=== PATIENT | female | born 1965 | race Caucasian/White ===

== ENCOUNTER 2017-08-24 14:16 | Emergency (ER) | payer OTHER ==
[2017-08-24 14:39] VITALS: BMI 29.2
--- NOTE | 2017-08-24 14:40 | PDOC ---
History of Present Illness - General History Source: Patient Exam Limitations: No Limitations <Eusebia Balderrama - Last Filed: 08/24/17 14:55> <Sudha Tinoco - Last Filed: 08/25/17 07:54> <Devan Gill - Last Filed: 08/26/17 05:08> - General Chief Complaint: Syncope/Near Syncope Stated Complaint: SYNCOPE Time Seen by Provider: 08/24/17 14:32 - History of Present Illness Initial Comments: 08/24/17 14:55 The patient is a 52 year old female with a significant PMH of polysubstance abuse who was sent in from [facility] to the emergency department for AMS, constricted pupils and somnulence. [facility] administered Narcan for her symptoms. The patient recently completely detox at [facility]. The patient admits to drinking Vodka after detox but is otherise is not providing history. The patient denies abdominal pain, chest pain, shortness of breath, headache and dizziness. Allergies: NKA Past surgical history: None reported. (Eusebia Balderrama) Past History <Eusebia Balderrama - Last Filed: 08/24/17 14:55> <Sudha Tinoco - Last Filed: 08/25/17 07:54> - Past Medical History Anemia: No Asthma: No Cancer: No Cardiac Disorders: No CVA: No COPD: No Dementia: No Diabetes: No GI Disorders: No Disorders: No HTN: No Hypercholesterolemia: No Kidney Stones: No Liver Disease: No Seizures: No Thyroid Disease: No - Surgical History Abdominal Surgery: No Appendectomy: No Cardiac Surgery: No Cholecystectomy: No Lung Surgery: No Neurologic Surgery: No Orthopedic Surgery: No - Reproductive History PID: No - Suicide/Smoking/Psychosocial Hx Smoking History: Unknown if ever smoked Have you smoked in the past 12 months: No Hx Alcohol Use: Yes Drug/Substance Use Hx: No Substance Use Type: Alcohol Hx Substance Use Treatment: Yes <Devan Gill - Last Filed: 08/26/17 05:08> - Past Medical History Allergies/Adverse Reactions: Allergies Allergy/AdvReac Type Severity Reaction Status Date / Time No Known Allergies Allergy Verified 08/25/17 12:52 Home Medications: Ambulatory Orders Paroxetine HCl [Paxil -] 30 mg PO DAILY 03/30/18 Quetiapine Fumarate [Seroquel -] 200 mg PO HS 08/25/17 Cardiac Specific PMH - Complaint Specific PMHX Pacemaker: No <Devan Gill - Last Filed: 08/26/17 05:08> Review of Systems - Review of Systems Able to Perform ROS?: No (Limited 2/2 to pt condit.) <Eusebia Balderrama - Last Filed: 08/24/17 14:55> <Sudha Tinoco - Last Filed: 08/25/17 07:54> <Devan Gill - Last Filed: 08/26/17 05:08> - Review of Systems Comments:: 08/24/17 14:54 Limited due to patient condition. (Eusebia Balderrama) *Physical Exam <Eusebia Balderrama - Last Filed: 08/24/17 14:55> <Sudha Tinoco - Last Filed: 08/25/17 07:54> <Devan Gill - Last Filed: 08/26/17 05:08> - Vital Signs Last Vital Signs Temp Pulse Resp BP Pulse Ox 98.2 F 80 18 102/74 99 08/25/17 08:34 08/25/17 09:22 08/25/17 09:22 08/25/17 09:22 08/25/17 09:22 - Physical Exam Comments: 08/24/17 14:55 GENERAL: The patient is awake, alert, but slow to respond, Nontoxic - in no acute distress. HEAD: Normocephalic, atraumatic. EYES: extraocular movements intact, sclera anicteric, conjunctiva clear. ENT: Normal voice, Moist mucous membranes. NECK: Normal range of motion, supple LUNGS: Breath sounds equal, clear to auscultation bilaterally. No wheezes, no rhonchi, no rales. HEART: Regular rate and rhythm, ABDOMEN: Soft, nontender, normoactive bowel sounds. No guarding, no rebound. No CVA tenderness BACK: NO focal tenderness in midline in cervical/throacic/lumbar spine EXTREMITIES: Normal range of motion, no edema. No clubbing or cyanosis. No cords, erythema, or tenderness. NEUROLOGICAL: No facial assymetry, Normal speech, PSYCH: Normal mood, normal affect. SKIN: Warm, Dry, normal turgor, (Eusebia Balderrama) ED Treatment Course - LABORATORY CBC & Chemistry Diagram: 08/24/17 16:11 08/24/17 20:10 <Sudha Tinoco - Last Filed: 08/25/17 07:54> - LABORATORY CBC & Chemistry Diagram: 08/24/17 16:11 08/24/17 20:10 <Devan Gill - Last Filed: 08/26/17 05:08> - ADDITIONAL ORDERS Additional order review: 08/24/17 16:11 RBC 4.17 MCV 94.6 MCHC 34.4 RDW 15.6 MPV 8.1 Neutrophils % 49.5 Lymphocytes % 39.7 Monocytes % 8.0 Eosinophils % 1.8 Basophils % 1.0 - Medications Given in the ED: ED Medications Discontinued Medications Generic Name Dose Route Start Last Admin Trade Name Freq PRN Reason Stop Dose Admin Chlordiazepoxide HCl 25 mg 08/25/17 07:03 08/25/17 07:06 Librium - PO 08/25/17 07:04 25 mg ONCE ONE Administration Medical Decision Making <Eusebia Balderrama - Last Filed: 08/24/17 14:55> <Sudha Tinoco - Last Filed: 08/25/17 07:54> <Devan Gill - Last Filed: 08/26/17 05:08> - Medical Decision Making 08/24/17 14:40 52y F hx of polysubstance abuse sent from [facility] for evaluation of AMS - per Dr. Lam, she was noted to haveAMS, possible had constricted pupils and was given narcan 0.4 with improvement. on arrival the pt was awake but slow to respond to questsions, but in no distress otherwise. states she drank 'too much alcohol' but will not elborate. denies opiate use or benzo use. will ck labs to r/o etoh intoxication will ck tox screen supportive care vitals wnl here 08/24/17 18:07 pt more alert states she drank 2pints of vodka prior to going to rehab denies taking any thing else labs hemolized will repeat, but will observe for sobriety will sign out to dr. nagel to fu with results and reassess the pt (Devan Gill) *DC/Admit/Observation/Transfer <Eusebia Balderrama - Last Filed: 08/24/17 14:55> <Sudha Tinoco - Last Filed: 08/25/17 07:54> <Devan Gill - Last Filed: 08/26/17 05:08> Diagnosis at time of Disposition: Alcohol dependence - Discharge Dispostion Disposition: HOME Condition at time of disposition: Stable - Patient Instructions Printed Discharge Instructions: DI for Alcohol Abuse - Attestations Scribe Attestion: 08/24/17 14:55 Documentation prepared by Eusebia Balderrama, acting as medical receptionist for Devan Gill MD. (Eusebia Balderrama)
[2017-08-24 16:19] LABS: EOS % 1.8 % (0-4.5); HEMATOCRIT 39.4 % (32.4-45.2); HEMOGLOBIN 13.6 GM/dL (10.7-15.3); LYMPH % 39.7 % (8-40); MCH 32.5 pg (25.7-33.7); MCHC 34.4 g/dl (32.0-36.0); MEAN CELL VOLUME 94.6 fl (80-96); MEAN PLT VOLUME 8.1 fl (7.5-11.1); NEUT % 49.5 % (42.8-82.8); PLATELET COUNT 260 K/MM3 (134-434); RBC 4.17 M/mm3 (3.60-5.2); RDW 15.6 % (11.6-15.6); WHITE BLOOD COUNT 4.9 K/mm3 (4.0-10.0)
[2017-08-24 21:52] LABS: ALBUMIN 3.5 g/dl (3.4-5.0); ANION GAP 12 (8-16); BLOOD UREA NITROGEN 14 mg/dL (7-18); CALCIUM 8.3 mg/dL (8.5-10.1); CHLORIDE 109 mmol/L (98-107); CO2 26 mmol/L (21-32); CREATININE 0.6 mg/dL (0.55-1.02); GLUCOSE,RANDOM 90 mg/dL (74-106); SGPT/ALT 29 U/L (12-78); SODIUM 147 mmol/L (136-145)
[2017-08-24 21:53] LABS: ALK PHOS 70 U/L (45-117); BILIRUBIN,TOTAL 0.2 mg/dL (0.2-1.0); TOT PROT 6.9 g/dl (6.4-8.2)
[2017-08-24 21:57] LABS: POTASSIUM 4.7 mmol/L (3.5-5.1)
[2017-08-24 21:58] LABS: SGOT/AST 29 U/L (15-37)
[2017-08-25] MEDS ORDERED: chlordiazePOXIDE HCL 25 MG CAPSULE PO ONE (07:03)
--- NOTE | 2017-08-25 07:03 | PDOC ---
*Physical Exam - Vital Signs Last Vital Signs Temp Pulse Resp BP Pulse Ox 98.3 F 96 H 16 113/71 94 L 08/24/17 14:36 08/24/17 20:36 08/24/17 20:36 08/24/17 20:36 08/24/17 20:36 ED Treatment Course - LABORATORY CBC & Chemistry Diagram: 08/24/17 16:11 08/24/17 20:10 - ADDITIONAL ORDERS Additional order review: Laboratory Results 08/24/17 20:10 Sodium 147 H Potassium 4.7 Chloride 109 H Carbon Dioxide 26 Anion Gap 12 BUN 14 Creatinine 0.6 Creat Clearance w eGFR > 60 Random Glucose 90 Calcium 8.3 L Total Bilirubin 0.2 D AST 29 ALT 29 Alkaline Phosphatase 70 Total Protein 6.9 Albumin 3.5 Alcohol, Quantitative 248.03 H* 08/24/17 16:11 RBC 4.17 MCV 94.6 MCHC 34.4 RDW 15.6 MPV 8.1 Neutrophils % 49.5 Lymphocytes % 39.7 Monocytes % 8.0 Eosinophils % 1.8 Basophils % 1.0 Medical Decision Making - Medical Decision Making 08/25/17 07:03 Pt to go to [place] [facility] after 8am. *DC/Admit/Observation/Transfer Diagnosis at time of Disposition: Alcohol dependence - Discharge Dispostion Disposition: HOME Condition at time of disposition: Stable Admit: No - Referrals - Patient Instructions Printed Discharge Instructions: DI for Alcohol Abuse - Post Discharge Activity
[2017-08-25] MEDS ORDERED: chlordiazePOXIDE HCL 25 MG CAPSULE ONE (07:08)
[2017-08-25 08:36] VITALS: TEMP 98.2
[2017-08-25 09:23] VITALS: BP 102/74; PULSE 80
== END 2017-08-25 09:36 | disposition home or self-care (01) ==
LOC: JER 14:16
DX: F10.20 Alcohol dependence, uncomplicated (principal)
CPT/HCPCS: 36415; 80053; 80307; 85025; 99285-25

== ENCOUNTER 2017-08-25 09:55 | Inpatient (IN) | payer OTHER ==
[2017-08-25 10:26] VITALS: BMI 34.3
--- NOTE | 2017-08-25 13:57 | HP ---
Admission [facility] Chief Complaint: REHAB TX FOR ALCOHOL ADDICTION Allergies/Adverse Reactions: Allergies Allergy/AdvReac Type Severity Reaction Status Date / Time No Known Allergies Allergy Verified 08/25/17 12:52 History of Present Illness: 52 Y/O FEMALE WITH A HX OF ALCOHOL DEPENDENCE SEEKING REHAB TX. PT WAS HERE YESTERDAY FOR TREATMENT BUT WAS UNRESPONSIVE TO ADMISSION ASSESSMENT AND WAS TAKEN BY AMBULANCE TO [facility] FOR EVALUATION AND POSSIBLE TREATMENT. PT STATES WAS GIVEN LIBRIUM FOR ANXIETY AND DISCHARGED TODAY FOR AFTERCARE. Exam Limitations: No Limitations - Ebola screening Have you traveled outside of the country in the last 21 days: No Have you had contact with anyone from an Ebola affected area: No Have you been sick,other than usual withdrawal symptoms: No Do you have a fever: No - Review of Systems Constitutional: Chills, Loss of Appetite, Night Sweats, Changes in sleep EENT: reports: Blurred Vision, Tearing, Nose Congestion Respiratory: reports: No Symptoms reported Cardiac: reports: Lightheadedness GI: reports: Diarrhea, Poor Appetite, Indigestion : reports: No Symptoms Reported Musculoskeletal: reports: Joint Pain (LEFT KNEE PAIN), Muscle Pain Integumentary: reports: Bruising (IN THE PAST FROM FALLING WHILE INTOXICATED) Neuro: reports: Headache, Seizure (ALCOHOL RELATED--), Tremors, Unsteady Gait ( ON INTOXICATION), Dizziness Endocrine: reports: No Symptoms Reported Hematology: reports: No Symptoms Reported Psychiatric: reports: Orientated x3, Anxious, Depressed Other Systems: Reviewed and Negative Patient History - Patient Medical History Hx Anemia: No Hx Asthma: No Hx Chronic Obstructive Pulmonary Disease (COPD): No Hx Cancer: No Hx Cardiac Disorders: No Hx Hypertension: No Hx Hypercholesterolemia: No Hx Pacemaker: No HX Cerebrovascular Accident: No Hx Seizures: Yes (alcohol related seizures-last episode was in 2014) Hx Dementia: No Hx Diabetes: No Hx Gastrointestinal Disorders: Yes (acid reflux) Hx Liver Disease: No Hx Genitourinary Disorders: No Hx Sexually Transmitted Disorders: No (DENIES) Hx Renal Disease (ESRD): No Hx Thyroid Disease: Yes (SAYS HYPOTHYROID HX BUT NOT TAKING ANY MED) Hx Human Immunodeficiency Virus (HIV): No (NEGATIVE HX) Hx Hepatitis C: No (NEGATIVE HX) Hx Depression: Yes Hx Suicide Attempt: Yes (choked herself in 03/2016;DENIES S/I TODAY) Hx Bipolar Disorder: No Hx Schizophrenia: No - Patient Surgical History Past Surgical History: Yes Hx Neurologic Surgery: No Hx Cataract Extraction: No Hx Cardiac Surgery: No Hx Lung Surgery: No Hx Breast Surgery: No Hx Breast Biopsy: No Hx Abdominal Surgery: No Hx Appendectomy: No Hx Cholecystectomy: No Hx Genitourinary Surgery: No Hx Section: Yes (x3) Hx Orthopedic Surgery: No Hx Hysterectomy: No Anesthesia Reaction: No - PPD History Previous Implant?: Yes Documented Results: Positive w/proof Implanted On Prior [facility] Admission?: Yes Date: 11/18/15 Results: 10 mm PPD to be Administered?: No - Reproductive History Patient is a Female of Child Bearing Age (11 -55 yrs old): Yes Last Menstrual Period: 08/15/17 Patient : No - Smoking Cessation Smoking history: Never smoked Have you smoked in the past 12 months: No Hx Chewing Tobacco Use: No Initiated information on smoking cessation: No - Substance & Tx. History Hx Alcohol Use: Yes Substance Use Type: Alcohol Hx Substance Use Treatment: Yes (LAST TX AT [facility]) - Substances Abused Alcohol-vodka Route: Oral Frequency: Daily Amount used: 2 pts. Age of first use: 9 Date of Last Use: 08/24/17 Family Disease History - Family Disease History Family Disease History: CA: Grandparent (ETOH DEPENDENT), Other: Grandparent, Father (ETOH DEPENDENT), Mother (ETOH DEPENDENT) Admission Physical Exam [facility] - Vital Signs Vital Signs: Vital Signs - 24 hr 08/25/17 10:22 Temperature 96.6 F L Pulse Rate 75 Respiratory 20 Rate Blood Pressure 141/88 - Physical General Appearance: Yes: No Apparent Distress, Anxious HEENTM: Yes: EOMI, Normocephalic, KETTY, Pharynx Normal, Nasal Congestion, Rhinorrhea Respiratory: Yes: Chest Non-Tender, Lungs Clear, Normal Breath Sounds, No Respiratory Distress Neck: Yes: No masses,lesions,Nodules, Supple, Trachea in good position Breast: Yes: Breast Exam Deferred Cardiology: Yes: Regular Rhythm, Regular Rate, S1, S2 Abdominal: Yes: Normal Bowel Sounds, Non Tender, Flat Genitourinary: Yes: Other (N/C) Musculoskeletal: Yes: full range of Motion, Gait Steady Extremities: Yes: Normal Range of Motion, Non-Tender Neurological: Yes: aws consultant II-XII NML intact, Fully Oriented, Alert, Motor Strength 5/5 Integumentary: Yes: Dry, Warm Lymphatic: Yes: Within Normal Limits - Diagnostic (1) Alcohol dependence with uncomplicated withdrawal Current Visit: Yes Status: Chronic (2) Seizure Current Visit: Yes Status: Suspected (3) History of depression Current Visit: Yes Status: Chronic Cleared for Admission [facility] - Detox or Rehab Claeared for Rehab Admission: Yes [facility] Breath Alcohol Content Breath Alcohol Content: 0 Urine Pregancy Test - Result Urine Test Results: Negative- NO Line Present Urine Drug Screen - Results Drug Screen Negative: No Urine Drug Screen Results: BZO-Benzodiazepines Inpatient Rehab Admission - Initial Determination Are CD services needed?: Yes Free of communicable disease: Yes Not in need of hospitalization: Yes - Rehab Admission Criteria Patient is meeting Inpatient Rehab admission criteria:: Yes
[2017-08-25] MEDS ORDERED: MAGNESIUM HYDROX 2400MG/30ML ORAL SUSPENSION 30 ML CUP PO PRN (14:13)
[2017-08-25] MEDS ORDERED: MENTHOL/PHENOL 1 EACH UD MM PRN (14:13)
[2017-08-25] MEDS ORDERED: IBUPROFEN 400 MG TABLET (FP) PO PRN (14:13)
[2017-08-25] MEDS ORDERED: ACETAMINOPHEN 325 MG TABLET (FP) PO PRN (14:13)
[2017-08-25] MEDS ORDERED: guaiFENesin/D-METHORPHAN HB 10 ML UNIT-DOSE CUPS PO PRN (14:13)
[2017-08-25] MEDS ORDERED: LOPERAMIDE HCL 2 MG CAPSULE PO PRN (14:13)
[2017-08-25] MEDS ORDERED: P-EPHED 60MG/TRIPROLIDI 2.5MG TABLET PO PRN (14:13)
[2017-08-25] MEDS ORDERED: MAG HYDROX/AL HYDROX/SIMETH 30 ML UNIT-DOSE CUP PO PRN (14:13)
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
[2017-08-25] MEDS: PARoxetine HCL 20 MG TABLET (FP) PO SCH (17:59)
[2017-08-25] MEDS: THIAMINE HCL 100 MG TABLET (FP) PO SCH (21:51)
[2017-08-25] MEDS: QUEtiapine FUMARATE 200 MG TABLET PO SCH (21:51)
[2017-08-25] MEDS ORDERED: MELATONIN 5 MG TABLETS PO PRN (22:00)
[2017-08-26 03:39] LABS: URINE APPEARANCE SLCLOUDY; URINE BILIRUBIN NEGATIVE (<2.0 mg/dL); URINE BLOOD NEGATIVE (NEGATIVE); URINE COLOR YELLOW; URINE GLUCOSE (UA) NEGATIVE (NEGATIVE); URINE KETONE NEGATIVE (NEGATIVE); URINE LEUK ESTERASE TRACE (NEGATIVE); URINE NITRITE NEGATIVE (NEGATIVE); URINE PROTEIN NEGATIVE (NEGATIVE); URINE UROBILINOGEN NEGATIVE mg/dL (0.2-1.0)
[2017-08-26 03:46] LABS: EPI CELLS FEW /HPF (FEW); URINE BACTERIA RARE /hpf (NONE SEEN); URINE HYALINE CAST 2 /lpf; URINE MUCUS MANY; YEAST MANY
[2017-08-26] MEDS: PRENATAL VITAMINS W/ FOLIC ACID TABLET (FP) PO SCH (09:47)
[2017-08-26] MEDS: PARoxetine HCL 20 MG TABLET (FP) PO SCH (09:47)
[2017-08-26] MEDS: QUEtiapine FUMARATE 200 MG TABLET PO SCH (21:57)
[2017-08-26] MEDS: THIAMINE HCL 100 MG TABLET (FP) PO SCH (21:57)
[2017-08-27] MEDS: PRENATAL VITAMINS W/ FOLIC ACID TABLET (FP) PO SCH (10:34)
[2017-08-27] MEDS: PARoxetine HCL 20 MG TABLET (FP) PO SCH (10:34)
--- NOTE | 2017-08-27 16:30 | EKG ---
Test Reason : Blood Pressure : / mmHG Vent. Rate : 058 BPM Atrial Rate : 058 BPM P-R Int : 148 ms QRS Dur : 078 ms QT Int : 446 ms P-R-T Axes : 045 011 044 degrees QTc Int : 437 ms SINUS BRADYCARDIA NONSPECIFIC ST ABNORMALITY BORDERLINE ECG Confirmed by MD KEATON, MARÍA ([id number]) on 08/27/2017 4:30:45 PM Referred By: Confirmed By:MARÍA PUGH MD
[2017-08-27] MEDS: QUEtiapine FUMARATE 200 MG TABLET PO SCH (21:47)
[2017-08-27] MEDS: THIAMINE HCL 100 MG TABLET (FP) PO SCH (21:48)
[2017-08-28] MEDS: PARoxetine HCL 20 MG TABLET (FP) PO SCH (10:44)
[2017-08-28] MEDS: PRENATAL VITAMINS W/ FOLIC ACID TABLET (FP) PO SCH (10:44)
[2017-08-28] MEDS: QUEtiapine FUMARATE 200 MG TABLET PO SCH (21:48)
[2017-08-28] MEDS: THIAMINE HCL 100 MG TABLET (FP) PO SCH (21:48)
[2017-08-29] MEDS: PARoxetine HCL 20 MG TABLET (FP) PO SCH (10:50)
[2017-08-29] MEDS: PRENATAL VITAMINS W/ FOLIC ACID TABLET (FP) PO SCH (10:50)
[2017-08-29] MEDS: QUEtiapine FUMARATE 200 MG TABLET PO SCH (21:41)
[2017-08-29] MEDS: THIAMINE HCL 100 MG TABLET (FP) PO SCH (21:41)
[2017-08-30] MEDS: PRENATAL VITAMINS W/ FOLIC ACID TABLET (FP) PO SCH (10:40)
[2017-08-30] MEDS: PARoxetine HCL 20 MG TABLET (FP) PO SCH (10:40)
[2017-08-30] MEDS: QUEtiapine FUMARATE 200 MG TABLET PO SCH (22:01)
[2017-08-30] MEDS: THIAMINE HCL 100 MG TABLET (FP) PO SCH (22:01)
[2017-08-31] MEDS: PRENATAL VITAMINS W/ FOLIC ACID TABLET (FP) PO SCH (10:26)
[2017-08-31] MEDS: PARoxetine HCL 20 MG TABLET (FP) PO SCH (10:26)
[2017-08-31] MEDS: QUEtiapine FUMARATE 200 MG TABLET PO SCH (21:44)
[2017-08-31] MEDS: THIAMINE HCL 100 MG TABLET (FP) PO SCH (21:44)
[2017-08-31] MEDS: carBAMazepine 100 MG TAB.CHEW PO SCH (21:44)
[2017-09-01] MEDS: PARoxetine HCL 20 MG TABLET (FP) PO SCH (10:02)
[2017-09-01] MEDS: PRENATAL VITAMINS W/ FOLIC ACID TABLET (FP) PO SCH (10:02)
[2017-09-01] MEDS: carBAMazepine 100 MG TAB.CHEW PO SCH ×2 (10:02→21:40)
[2017-09-01] MEDS ORDERED: PT OWN MED DRAWER 7, Y5N ONE (19:34)
[2017-09-01] MEDS: THIAMINE HCL 100 MG TABLET (FP) PO SCH (21:40)
[2017-09-01] MEDS: QUEtiapine FUMARATE 200 MG TABLET PO SCH (21:40)
[2017-09-02] MEDS: PARoxetine HCL 20 MG TABLET (FP) PO SCH (09:58)
[2017-09-02] MEDS: carBAMazepine 100 MG TAB.CHEW PO SCH ×2 (09:58→21:44)
[2017-09-02] MEDS: PRENATAL VITAMINS W/ FOLIC ACID TABLET (FP) PO SCH (09:58)
[2017-09-02] MEDS: MAGNESIUM CITRATE 300 ML BOTTLE PO PRN (10:01)
[2017-09-02] MEDS: QUEtiapine FUMARATE 200 MG TABLET PO SCH (21:44)
[2017-09-02] MEDS: THIAMINE HCL 100 MG TABLET (FP) PO SCH (21:44)
[2017-09-03] MEDS ORDERED: PT OWN MED DRAWER 7, Y5N ONE (09:11)
[2017-09-03] MEDS: PRENATAL VITAMINS W/ FOLIC ACID TABLET (FP) PO SCH (09:57)
[2017-09-03] MEDS: PARoxetine HCL 20 MG TABLET (FP) PO SCH (09:57)
[2017-09-03] MEDS: carBAMazepine 100 MG TAB.CHEW PO SCH ×2 (09:57→21:44)
[2017-09-03] MEDS: THIAMINE HCL 100 MG TABLET (FP) PO SCH (21:44)
[2017-09-03] MEDS: QUEtiapine FUMARATE 200 MG TABLET PO SCH (21:45)
[2017-09-04] MEDS: PRENATAL VITAMINS W/ FOLIC ACID TABLET (FP) PO SCH (10:14)
[2017-09-04] MEDS: carBAMazepine 100 MG TAB.CHEW PO SCH ×2 (10:14→21:32)
[2017-09-04] MEDS: PARoxetine HCL 20 MG TABLET (FP) PO SCH (10:14)
[2017-09-04] MEDS: THIAMINE HCL 100 MG TABLET (FP) PO SCH (21:31)
[2017-09-04] MEDS: QUEtiapine FUMARATE 200 MG TABLET PO SCH (21:32)
[2017-09-05] MEDS: PARoxetine HCL 20 MG TABLET (FP) PO SCH (10:47)
[2017-09-05] MEDS: carBAMazepine 100 MG TAB.CHEW PO SCH ×2 (10:47→21:54)
[2017-09-05] MEDS: PRENATAL VITAMINS W/ FOLIC ACID TABLET (FP) PO SCH (10:48)
[2017-09-05] MEDS: QUEtiapine FUMARATE 200 MG TABLET PO SCH (21:54)
[2017-09-05] MEDS: THIAMINE HCL 100 MG TABLET (FP) PO SCH (21:54)
[2017-09-06] MEDS: PRENATAL VITAMINS W/ FOLIC ACID TABLET (FP) PO SCH (10:51)
[2017-09-06] MEDS: PARoxetine HCL 20 MG TABLET (FP) PO SCH (10:51)
[2017-09-06] MEDS: carBAMazepine 100 MG TAB.CHEW PO SCH ×2 (10:51→21:49)
[2017-09-06] MEDS: QUEtiapine FUMARATE 200 MG TABLET PO SCH (21:49)
[2017-09-06] MEDS: THIAMINE HCL 100 MG TABLET (FP) PO SCH (21:49)
[2017-09-07] MEDS: PARoxetine HCL 20 MG TABLET (FP) PO SCH (10:28)
[2017-09-07] MEDS: PRENATAL VITAMINS W/ FOLIC ACID TABLET (FP) PO SCH (10:28)
[2017-09-07] MEDS: carBAMazepine 100 MG TAB.CHEW PO SCH ×2 (10:28→21:50)
[2017-09-07] MEDS: THIAMINE HCL 100 MG TABLET (FP) PO SCH (21:50)
[2017-09-07] MEDS: QUEtiapine FUMARATE 200 MG TABLET PO SCH (21:50)
[2017-09-08] MEDS: PARoxetine HCL 20 MG TABLET (FP) PO SCH (10:57)
[2017-09-08] MEDS: carBAMazepine 100 MG TAB.CHEW PO SCH ×2 (10:57→21:56)
[2017-09-08] MEDS: PRENATAL VITAMINS W/ FOLIC ACID TABLET (FP) PO SCH (10:57)
[2017-09-08] MEDS: QUEtiapine FUMARATE 200 MG TABLET PO SCH (21:56)
[2017-09-08] MEDS: THIAMINE HCL 100 MG TABLET (FP) PO SCH (21:56)
[2017-09-09] MEDS: PRENATAL VITAMINS W/ FOLIC ACID TABLET (FP) PO SCH (10:38)
[2017-09-09] MEDS: PARoxetine HCL 20 MG TABLET (FP) PO SCH (10:38)
[2017-09-09] MEDS: carBAMazepine 100 MG TAB.CHEW PO SCH ×2 (10:38→22:00)
--- NOTE | 2017-09-09 13:14 | PN ---
B[facility] Progress Note Note: HISTORY OF HYPOTHYROIDISM,SUPPOSE TO TAKE SYNTHROID 50 MCG PO DAILY Laboratory Results - last 24 hr 09/09/17 09:30 TSH 6.90 H
[2017-09-09] MEDS ORDERED: LEVOTHYROXINE NA 25 MCG TABLET (FP) PO ONE (13:45)
[2017-09-09] MEDS: QUEtiapine FUMARATE 200 MG TABLET PO SCH (22:00)
[2017-09-09] MEDS: THIAMINE HCL 100 MG TABLET (FP) PO SCH (22:00)
[2017-09-10] MEDS: LEVOTHYROXINE NA 25 MCG TABLET (FP) PO SCH (06:46)
[2017-09-10] MEDS: PRENATAL VITAMINS W/ FOLIC ACID TABLET (FP) PO SCH (10:24)
[2017-09-10] MEDS: PARoxetine HCL 20 MG TABLET (FP) PO SCH (10:24)
[2017-09-10] MEDS: carBAMazepine 100 MG TAB.CHEW PO SCH ×2 (10:24→22:12)
[2017-09-10] MEDS: THIAMINE HCL 100 MG TABLET (FP) PO SCH (22:12)
[2017-09-10] MEDS: QUEtiapine FUMARATE 200 MG TABLET PO SCH (22:12)
[2017-09-11] MEDS: LEVOTHYROXINE NA 25 MCG TABLET (FP) PO SCH (06:27)
[2017-09-11] MEDS: PRENATAL VITAMINS W/ FOLIC ACID TABLET (FP) PO SCH (11:05)
[2017-09-11] MEDS: carBAMazepine 100 MG TAB.CHEW PO SCH ×2 (11:05→23:05)
[2017-09-11] MEDS: PARoxetine HCL 20 MG TABLET (FP) PO SCH (11:06)
[2017-09-11] MEDS: QUEtiapine FUMARATE 200 MG TABLET PO SCH (21:42)
[2017-09-11] MEDS: THIAMINE HCL 100 MG TABLET (FP) PO SCH (21:42)
[2017-09-12] MEDS: LEVOTHYROXINE NA 25 MCG TABLET (FP) PO SCH (06:34)
[2017-09-12] MEDS: PRENATAL VITAMINS W/ FOLIC ACID TABLET (FP) PO SCH (10:47)
[2017-09-12] MEDS: PARoxetine HCL 20 MG TABLET (FP) PO SCH (10:47)
[2017-09-12] MEDS: carBAMazepine 100 MG TAB.CHEW PO SCH ×2 (10:47→21:46)
[2017-09-12] MEDS: THIAMINE HCL 100 MG TABLET (FP) PO SCH (21:46)
[2017-09-12] MEDS: QUEtiapine FUMARATE 200 MG TABLET PO SCH (21:46)
[2017-09-13] MEDS: LEVOTHYROXINE NA 25 MCG TABLET (FP) PO SCH (06:48)
[2017-09-13] MEDS: carBAMazepine 100 MG TAB.CHEW PO SCH ×2 (10:45→21:38)
[2017-09-13] MEDS: PRENATAL VITAMINS W/ FOLIC ACID TABLET (FP) PO SCH (10:45)
[2017-09-13] MEDS: PARoxetine HCL 20 MG TABLET (FP) PO SCH (10:45)
[2017-09-13] MEDS: QUEtiapine FUMARATE 200 MG TABLET PO SCH (21:38)
[2017-09-13] MEDS: THIAMINE HCL 100 MG TABLET (FP) PO SCH (21:38)
[2017-09-14] MEDS: LEVOTHYROXINE NA 25 MCG TABLET (FP) PO SCH (06:41)
[2017-09-14] MEDS: PRENATAL VITAMINS W/ FOLIC ACID TABLET (FP) PO SCH (10:31)
[2017-09-14] MEDS: PARoxetine HCL 20 MG TABLET (FP) PO SCH (10:31)
[2017-09-14] MEDS: carBAMazepine 100 MG TAB.CHEW PO SCH ×2 (10:31→21:48)
[2017-09-14] MEDS: QUEtiapine FUMARATE 200 MG TABLET PO SCH (21:48)
[2017-09-14] MEDS: THIAMINE HCL 100 MG TABLET (FP) PO SCH (21:48)
[2017-09-15] MEDS: LEVOTHYROXINE NA 25 MCG TABLET (FP) PO SCH (06:39)
[2017-09-15] MEDS: PARoxetine HCL 20 MG TABLET (FP) PO SCH (10:51)
[2017-09-15] MEDS: carBAMazepine 100 MG TAB.CHEW PO SCH ×2 (10:51→21:48)
[2017-09-15] MEDS: PRENATAL VITAMINS W/ FOLIC ACID TABLET (FP) PO SCH (10:51)
[2017-09-15] MEDS: QUEtiapine FUMARATE 200 MG TABLET PO SCH (21:48)
[2017-09-15] MEDS: THIAMINE HCL 100 MG TABLET (FP) PO SCH (21:48)
[2017-09-16] MEDS: LEVOTHYROXINE NA 25 MCG TABLET (FP) PO SCH (06:38)
[2017-09-16] MEDS: PRENATAL VITAMINS W/ FOLIC ACID TABLET (FP) PO SCH (10:45)
[2017-09-16] MEDS: carBAMazepine 100 MG TAB.CHEW PO SCH ×2 (10:45→21:46)
[2017-09-16] MEDS: PARoxetine HCL 20 MG TABLET (FP) PO SCH (10:45)
[2017-09-16] MEDS: QUEtiapine FUMARATE 200 MG TABLET PO SCH (21:46)
[2017-09-16] MEDS: THIAMINE HCL 100 MG TABLET (FP) PO SCH (21:46)
[2017-09-17] MEDS: LEVOTHYROXINE NA 25 MCG TABLET (FP) PO SCH (06:15)
[2017-09-17] MEDS: PARoxetine HCL 20 MG TABLET (FP) PO SCH (10:32)
[2017-09-17] MEDS: PRENATAL VITAMINS W/ FOLIC ACID TABLET (FP) PO SCH (10:32)
[2017-09-17] MEDS: carBAMazepine 100 MG TAB.CHEW PO SCH ×2 (10:32→21:45)
[2017-09-17] MEDS: QUEtiapine FUMARATE 200 MG TABLET PO SCH (21:45)
[2017-09-17] MEDS: THIAMINE HCL 100 MG TABLET (FP) PO SCH (21:49)
[2017-09-18] MEDS: LEVOTHYROXINE NA 25 MCG TABLET (FP) PO SCH (06:35)
[2017-09-18] MEDS: carBAMazepine 100 MG TAB.CHEW PO SCH ×2 (10:34→21:21)
[2017-09-18] MEDS: PARoxetine HCL 20 MG TABLET (FP) PO SCH (10:34)
[2017-09-18] MEDS: PRENATAL VITAMINS W/ FOLIC ACID TABLET (FP) PO SCH (10:34)
[2017-09-18] MEDS: THIAMINE HCL 100 MG TABLET (FP) PO SCH (21:21)
[2017-09-18] MEDS: QUEtiapine FUMARATE 200 MG TABLET PO SCH (21:21)
[2017-09-19] MEDS: LEVOTHYROXINE NA 25 MCG TABLET (FP) PO SCH (06:42)
[2017-09-19] MEDS: carBAMazepine 100 MG TAB.CHEW PO SCH ×2 (10:47→21:26)
[2017-09-19] MEDS: PARoxetine HCL 20 MG TABLET (FP) PO SCH (10:47)
[2017-09-19] MEDS: PRENATAL VITAMINS W/ FOLIC ACID TABLET (FP) PO SCH (10:47)
[2017-09-19] MEDS: QUEtiapine FUMARATE 200 MG TABLET PO SCH (21:26)
[2017-09-19] MEDS: THIAMINE HCL 100 MG TABLET (FP) PO SCH (21:44)
[2017-09-20] MEDS: LEVOTHYROXINE NA 25 MCG TABLET (FP) PO SCH (06:39)
[2017-09-20] MEDS: carBAMazepine 100 MG TAB.CHEW PO SCH ×2 (10:36→21:46)
[2017-09-20] MEDS: PRENATAL VITAMINS W/ FOLIC ACID TABLET (FP) PO SCH (10:36)
[2017-09-20] MEDS: PARoxetine HCL 20 MG TABLET (FP) PO SCH (10:36)
[2017-09-20] MEDS: QUEtiapine FUMARATE 200 MG TABLET PO SCH (21:46)
[2017-09-20] MEDS: THIAMINE HCL 100 MG TABLET (FP) PO SCH (21:46)
[2017-09-21] MEDS: LEVOTHYROXINE NA 25 MCG TABLET (FP) PO SCH (06:26)
[2017-09-21] MEDS: PARoxetine HCL 20 MG TABLET (FP) PO SCH (10:26)
[2017-09-21] MEDS: PRENATAL VITAMINS W/ FOLIC ACID TABLET (FP) PO SCH (10:26)
[2017-09-21] MEDS: carBAMazepine 100 MG TAB.CHEW PO SCH ×2 (10:26→21:43)
--- NOTE | 2017-09-21 12:40 | PN ---
Psychiatric Progress Note Vital Signs: Vital Signs Period Temp Pulse Resp BP Sys/Shipley Pulse Ox Last 24 Hr 97.7 F 66 16-18 94/62 Date of Session: 09/21/17 Chief Complaint:: Discharge Note HPI: Patient addressing Alcohol and Opioid Dependence comormid with Alcohol- induced Mood Disorder ROS: Seizure Disorder, Hypothyroidism Current Medications: Active Medications Generic Name Dose Route Start Last Admin Trade Name Freq PRN Reason Stop Dose Admin Acetaminophen 650 mg 08/25/17 14:13 Tylenol - PO Q4H PRN FEVER Al Hydroxide/Mg Hydroxide 30 ml 08/25/17 14:13 08/29/17 21:42 Mylanta Oral Suspension - PO 30 ml Q6H PRN Administration DYSPEPSIA Carbamazepine 100 mg 08/31/17 22:00 09/21/17 10:26 Tegretol - PO 100 mg BID EMMY Administration Eucalyptus/Menthol/Phenol/Sorbitol 1 each 08/25/17 14:13 Cepastat Lozenge - MM Q4H PRN SORE THROAT Guaifenesin 10 ml 08/25/17 14:13 Robitussin Dm - PO Q6H PRN COUGH Ibuprofen 400 mg 08/25/17 14:13 Motrin - PO Q6H PRN Pain level 4-6 Levothyroxine Sodium 50 mcg 09/10/17 07:00 09/21/17 06:26 Synthroid - PO 50 mcg DAILY@0700 EMMY Administration Loperamide HCl 4 mg 08/25/17 14:13 Imodium - PO Q6H PRN DIARRHEA Magnesium Citrate 300 ml 08/25/17 14:13 09/02/17 10:01 Citroma - PO 300 ml Q48H PRN Administration CONSTIPATION Magnesium Hydroxide 30 ml 08/25/17 14:13 Milk Of Magnesia - PO DAILY PRN CONSTIPATION Melatonin 5 mg 08/25/17 22:00 Melatonin PO HS PRN INSOMNIA Paroxetine HCl 20 mg 08/25/17 17:15 09/21/17 10:26 Paxil - PO 20 mg DAILY EMMY Administration Multivit/Folic Acid/Iron 1 tab 08/26/17 10:00 09/21/17 10:26 Vitamins (Sjr) - PO 1 tab DAILY EMMY Administration Pseudoephedrine/Triprolidine 1 combo 08/25/17 14:13 Actifed - PO TID PRN NASAL CONGESTION Quetiapine Fumarate 200 mg 08/25/17 22:00 09/20/17 21:46 Seroquel - PO 200 mg HS EMMY Administration Thiamine HCl 100 mg 08/25/17 22:00 09/20/17 21:46 Vitamin B1 - PO 100 mg HS EMMY Administration Current Side Effect: No Lab tests ordered: Yes Lab tests reviewed: Yes Provider note:: Patient will complete this program on 09/22/17. She has met her treatment goals and will continue to address her issues in care home treatment program at [facility]. She responded well to Seroquel 200 mg po HS and Paxil 20 mg po daily. Scripts for 30 days supply of these medications will be electronicalt transmitted to [facility] at [address] [place] [address]. 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
[2017-09-21] MEDS: QUEtiapine FUMARATE 200 MG TABLET PO SCH (21:43)
[2017-09-21] MEDS: THIAMINE HCL 100 MG TABLET (FP) PO SCH (21:43)
[2017-09-22] MEDS: LEVOTHYROXINE NA 25 MCG TABLET (FP) PO SCH (06:16)
[2017-09-22] MEDS: PRENATAL VITAMINS W/ FOLIC ACID TABLET (FP) PO SCH (10:47)
[2017-09-22] MEDS: PARoxetine HCL 20 MG TABLET (FP) PO SCH (10:47)
[2017-09-22] MEDS: carBAMazepine 100 MG TAB.CHEW PO SCH ×2 (10:47→21:30)
[2017-09-22] MEDS: QUEtiapine FUMARATE 200 MG TABLET PO SCH (21:30)
[2017-09-22] MEDS: THIAMINE HCL 100 MG TABLET (FP) PO SCH (21:30)
[2017-09-23] MEDS: LEVOTHYROXINE NA 25 MCG TABLET (FP) PO SCH (06:32)
[2017-09-23] MEDS: PRENATAL VITAMINS W/ FOLIC ACID TABLET (FP) PO SCH (10:06)
[2017-09-23] MEDS: PARoxetine HCL 20 MG TABLET (FP) PO SCH (10:06)
[2017-09-23] MEDS: carBAMazepine 100 MG TAB.CHEW PO SCH ×2 (10:06→21:29)
[2017-09-23] MEDS: THIAMINE HCL 100 MG TABLET (FP) PO SCH (21:29)
[2017-09-23] MEDS: QUEtiapine FUMARATE 200 MG TABLET PO SCH (21:29)
[2017-09-24] MEDS: LEVOTHYROXINE NA 25 MCG TABLET (FP) PO SCH (06:33)
[2017-09-24] MEDS: PRENATAL VITAMINS W/ FOLIC ACID TABLET (FP) PO SCH (10:00)
[2017-09-24] MEDS: PARoxetine HCL 20 MG TABLET (FP) PO SCH (10:01)
[2017-09-24] MEDS: carBAMazepine 100 MG TAB.CHEW PO SCH ×2 (10:01→21:39)
[2017-09-24] MEDS: THIAMINE HCL 100 MG TABLET (FP) PO SCH (21:39)
[2017-09-24] MEDS: QUEtiapine FUMARATE 200 MG TABLET PO SCH (21:39)
[2017-09-25] MEDS: LEVOTHYROXINE NA 25 MCG TABLET (FP) PO SCH (06:47)
[2017-09-25] MEDS: PARoxetine HCL 20 MG TABLET (FP) PO SCH (10:19)
[2017-09-25] MEDS: PRENATAL VITAMINS W/ FOLIC ACID TABLET (FP) PO SCH (10:19)
[2017-09-25] MEDS: carBAMazepine 100 MG TAB.CHEW PO SCH ×2 (10:19→21:35)
[2017-09-25] MEDS: MAGNESIUM CITRATE 300 ML BOTTLE PO PRN (14:56)
[2017-09-25] MEDS: QUEtiapine FUMARATE 200 MG TABLET PO SCH (21:35)
[2017-09-25] MEDS: THIAMINE HCL 100 MG TABLET (FP) PO SCH (21:35)
[2017-09-26] MEDS: LEVOTHYROXINE NA 25 MCG TABLET (FP) PO SCH (06:26)
[2017-09-26] MEDS: PRENATAL VITAMINS W/ FOLIC ACID TABLET (FP) PO SCH (10:31)
[2017-09-26] MEDS: PARoxetine HCL 20 MG TABLET (FP) PO SCH (10:31)
[2017-09-26] MEDS: carBAMazepine 100 MG TAB.CHEW PO SCH ×2 (10:32→21:28)
[2017-09-26] MEDS: THIAMINE HCL 100 MG TABLET (FP) PO SCH (21:28)
[2017-09-26] MEDS: QUEtiapine FUMARATE 200 MG TABLET PO SCH (21:28)
[2017-09-27] MEDS: LEVOTHYROXINE NA 25 MCG TABLET (FP) PO SCH (06:21)
[2017-09-27] MEDS: PARoxetine HCL 20 MG TABLET (FP) PO SCH (10:03)
[2017-09-27] MEDS: carBAMazepine 100 MG TAB.CHEW PO SCH ×2 (10:04→21:35)
[2017-09-27] MEDS: PRENATAL VITAMINS W/ FOLIC ACID TABLET (FP) PO SCH (10:04)
--- NOTE | 2017-09-27 16:31 | PN ---
Psychiatric Progress Note Vital Signs: Vital Signs Period Temp Pulse Resp BP Sys/Shipley Pulse Ox Last 24 Hr 97.8 F 66 18-18 108/74 Date of Session: 09/27/17 Chief Complaint:: Discharge visit HPI: Patient addressed Alcohol,Opioid dependence comorbid with Substance induced mood disorder. ROS: Significant for Seizure disorder,Hypothyroidism. Current Medications: Active Medications Generic Name Dose Route Start Last Admin Trade Name Freq PRN Reason Stop Dose Admin Acetaminophen 650 mg 08/25/17 14:13 Tylenol - PO Q4H PRN FEVER Al Hydroxide/Mg Hydroxide 30 ml 08/25/17 14:13 08/29/17 21:42 Mylanta Oral Suspension - PO 30 ml Q6H PRN Administration DYSPEPSIA Carbamazepine 100 mg 08/31/17 22:00 09/27/17 10:04 Tegretol - PO 100 mg BID EMMY Administration Eucalyptus/Menthol/Phenol/Sorbitol 1 each 08/25/17 14:13 Cepastat Lozenge - MM Q4H PRN SORE THROAT Guaifenesin 10 ml 08/25/17 14:13 Robitussin Dm - PO Q6H PRN COUGH Ibuprofen 400 mg 08/25/17 14:13 Motrin - PO Q6H PRN Pain level 4-6 Levothyroxine Sodium 50 mcg 09/10/17 07:00 09/27/17 06:21 Synthroid - PO 50 mcg DAILY@0700 EMMY Administration Loperamide HCl 4 mg 08/25/17 14:13 Imodium - PO Q6H PRN DIARRHEA Magnesium Citrate 300 ml 08/25/17 14:13 09/25/17 14:56 Citroma - PO 300 ml Q48H PRN Administration CONSTIPATION Magnesium Hydroxide 30 ml 08/25/17 14:13 09/24/17 08:12 Milk Of Magnesia - PO 30 ml DAILY PRN Administration CONSTIPATION Melatonin 5 mg 08/25/17 22:00 Melatonin PO HS PRN INSOMNIA Paroxetine HCl 20 mg 08/25/17 17:15 09/27/17 10:03 Paxil - PO 20 mg DAILY EMMY Administration Multivit/Folic Acid/Iron 1 tab 08/26/17 10:00 09/27/17 10:04 Vitamins (Sjr) - PO 1 tab DAILY EMMY Administration Pseudoephedrine/Triprolidine 1 combo 08/25/17 14:13 Actifed - PO TID PRN NASAL CONGESTION Quetiapine Fumarate 200 mg 08/25/17 22:00 09/26/17 21:28 Seroquel - PO 200 mg HS EMMY Administration Thiamine HCl 100 mg 08/25/17 22:00 09/26/17 21:28 Vitamin B1 - PO 100 mg HS EMMY Administration Current Side Effect: No Lab tests ordered: No Lab tests reviewed: Yes Provider note:: Patient will complete this program tomorrow 09/28/17.She has met her treatment goals and will continue to address her issues on outpatient basis .Patient reports finding that current medications help to cope with anxiety,mood instability and sleeping difficulties.Scripts for 30 days provided. Supportive therapy provided focusing on relapse prevention.Coping skills,support utilization has been discussed with the patient. Patient is stable for discharge tomorrow 09/28/17. Total face to face time:: 30 Mental Status Exam - Mental Status Exam Alert and Oriented to: Time, Place, Person Cognitive Function: Grossly Intact Patient Appearance: Well Groomed Mood: Euthymic Affect: Mood Congruent Patient Behavior: Cooperative Speech Pattern: Clear Voice Loudness: Normal Thought Process: Goal Oriented Thought Disorder: Not Present Hallucinations: Denies Suicidal Ideation: Denies Homicidal Ideation: Denies Insight/Judgement: Fair Sleep: Fair Appetite: Good Muscle strength/Tone: Normal Gait/Station: Normal
[2017-09-27] MEDS: THIAMINE HCL 100 MG TABLET (FP) PO SCH (21:35)
[2017-09-27] MEDS: QUEtiapine FUMARATE 200 MG TABLET PO SCH (21:35)
[2017-09-28] MEDS: LEVOTHYROXINE NA 25 MCG TABLET (FP) PO SCH (06:20)
[2017-09-28 07:07] VITALS: BP 95/67; PULSE 59; TEMP 97.7
[2017-09-28] MEDS: PRENATAL VITAMINS W/ FOLIC ACID TABLET (FP) PO SCH (09:05)
[2017-09-28] MEDS: PARoxetine HCL 20 MG TABLET (FP) PO SCH (09:05)
[2017-09-28] MEDS: carBAMazepine 100 MG TAB.CHEW PO SCH (09:05)
== END 2017-09-28 09:08 | disposition home or self-care (01) | DRG 772 ==
LOC: YASAS 09:55 → Y3E 14:33
PROVIDERS: ADMIT Psychiatry & Neurology Psychiatry; ATTEND Psychiatry & Neurology Psychiatry
PROC: HZ42ZZZ Group Counseling for Substance Abuse Treatment, Cognitive-Behavioral (ICD-10-PCS; principal; 2017-08-25)
DX: F11.20 Opioid dependence, uncomplicated (principal); F10.20 Alcohol dependence, uncomplicated; F10.24 Alcohol dependence with alcohol-induced mood disorder; F32.9 Major depressive disorder, single episode, unspecified; K21.9 Gastro-esophageal reflux disease without esophagitis; E03.9 Hypothyroidism, unspecified; Z86.19 Personal history of other infectious and parasitic diseases; Z91.5 Personal history of self-harm
CPT/HCPCS: 36415; 71046-TC-FY; 81003; 81015; 84443; 86593; 87389; 93005; 93010

== ENCOUNTER 2018-11-23 12:55 | Inpatient (IN) | payer OTHER ==
[2018-11-23 14:35] VITALS: BMI 31.2
--- NOTE | 2018-11-23 17:23 | HP ---
CIWA Score Nausea/Vomitin-No Nausea/No Vomiting Muscle Tremors: 2 Anxiety: 3 Agitation: 4-Moderately Restless Paroxysmal Sweats: No Perspiration Orientation: 0-Oriented Tacttile Disturbances: 0-None Auditory Disturbances: 0-None Visual Disturbances: 0-None Headache: 0-None Present CIWA-Ar Total Score: 9 - Admission Criteria OASAS Guidelines: Admission for Medically Managed Detox: Requires at least one of the followin. CIWA greater than 12 2. Seizures within the past 24 hours 3. Delirium tremens within the past 24 hours 4. Hallucinations within the past 24 hours 5. Acute intervention needed for co occurring medical disorder 6. Acute intervention needed for co occurring psychiatric disorder 7. Severe withdrawal that cannot be handled at a lower level of care (continued vomiting, continued diarrhea, abnormal vital signs) requiring intravenous medication and/or fluids 8. Admission ROS S - HPI Allergies/Adverse Reactions: Allergies Allergy/AdvReac Type Severity Reaction Status Date / Time No Known Allergies Allergy Verified 11/23/18 14:18 History of Present Illness: pt here requesting detox from etoh use ,. reports 2.5 pints of vodka daily , binge- drinking since 2 weeks ago , respite of 2 days , relapse after d/c from this facility 1 yr ago, reports cravings if not drinking , withdrawals as above, latest use yesterday , reports tremors if not drinking , + blackouts, , w/d seizure most recently 3 years ago , first age of use 30's . denies illicits tobacco : denies PMHX : hypothyroidism previously on Synthroid , latest taken > 5 mo ago pshx : c-sx x 3 psych : depression, anxiety , insomnia Exam Limitations: Clinical Condition - Ebola screening Have you traveled outside of the country in the last 21 days: No Have you had contact with anyone from an Ebola affected area: No Do you have a fever: No - Review of Systems Constitutional: Loss of Appetite EENT: reports: No Symptoms Reported Respiratory: reports: No Symptoms reported Cardiac: reports: No Symptoms Reported GI: reports: No Symptoms Reported : reports: No Symptoms Reported Musculoskeletal: reports: See HPI Neuro: reports: Pre-Existing Deficit, Seizure Endocrine: reports: No Symptoms Reported Psychiatric: reports: Orientated x3, Agitated, Anxious, Depressed Patient History - Patient Medical History Hx Anemia: No Hx Asthma: No Hx Chronic Obstructive Pulmonary Disease (COPD): No Hx Cancer: No Hx Cardiac Disorders: No Hx Hypertension: No Hx Hypercholesterolemia: No Hx Pacemaker: No HX Cerebrovascular Accident: No Hx Seizures: Yes (alcohol related seizures-last episode was in 2014) Hx Dementia: No Hx Diabetes: No Hx Gastrointestinal Disorders: Yes (acid reflux) Hx Liver Disease: No Hx Genitourinary Disorders: No Hx Sexually Transmitted Disorders: No (DENIES) Hx Renal Disease (ESRD): No Hx Thyroid Disease: Yes (SAYS HYPOTHYROID HX BUT NOT TAKING ANY MED) Hx Human Immunodeficiency Virus (HIV): No (NEGATIVE HX) Hx Hepatitis C: No (NEGATIVE HX) Hx Depression: Yes Hx Suicide Attempt: Yes (choked herself in 03/2016;DENIES S/I TODAY) Hx Bipolar Disorder: No Hx Schizophrenia: No - Patient Surgical History Past Surgical History: Yes Hx Neurologic Surgery: No Hx Cataract Extraction: No Hx Cardiac Surgery: No Hx Lung Surgery: No Hx Breast Surgery: No Hx Breast Biopsy: No Hx Abdominal Surgery: No Hx Appendectomy: No Hx Cholecystectomy: No Hx Genitourinary Surgery: No Hx Section: Yes (x3) Hx Orthopedic Surgery: No Hx Hysterectomy: No Anesthesia Reaction: No - PPD History Date: 11/18/15 Results: 10 mm - Reproductive History Last Menstrual Period: 08/15/17 - Smoking Cessation Smoking history: Never smoked Have you smoked in the past 12 months: No Hx Chewing Tobacco Use: No - Substances abused Alcohol Substance route: Oral Frequency: Daily Amount used: 2.5 pints of vodka Age of first use: 9 Date of last use: 11/22/18 Family Disease History - Family Disease History Family Disease History: CA: Grandparent (ETOH DEPENDENT), Other: Grandparent, Father (ETOH DEPENDENT), Mother (ETOH DEPENDENT) Admission Physical Exam BHS - Vital Signs Vital Signs: Vital Signs - 24 hr 11/23/18 11/23/18 14:29 17:04 Temperature 97.2 F L 97.2 F L Pulse Rate 60 60 Respiratory 16 16 Rate Blood Pressure 119/82 119/82 - Physical General Appearance: Yes: Mild Distress, Anxious HEENTM: Yes: Normocephalic, Normal Voice, Other (left supraorbital ecchymosis , states does not recall from where , denies pain or c/o at this time left facial tic , reports known muscle spasms involuntary , on Botox injection tx [address] [place] q 3 [facility] Respiratory: Yes: Normal Breath Sounds, No Respiratory Distress, No Accessory Muscle Use, Rales Neck: Yes: No masses,lesions,Nodules, Trachea in good position Cardiology: Yes: Regular Rhythm, Regular Rate, S1, S2 Abdominal: Yes: Non Tender, Soft Extremities: Yes: Non-Tender, Tremors Neurological: Yes: Alert, Motor Strength 5/5 Integumentary: Yes: Warm - Diagnostic (1) Alcohol dependence with uncomplicated withdrawal Current Visit: Yes Status: Acute Breathalyzer - Breathalyzer Breathalyzer: 0 Urine Drug Screen - Test Device Lot number: [id number] Expiration date: 07/26/20 - Control Is test valid?: Yes - Results Drug screen NEGATIVE: Yes Inpatient Rehab Admission - Rehab Decision to Admit Inpatient rehab admission?: No
[2018-11-23] MEDS ORDERED: IBUPROFEN 400 MG TABLET (FP) PO PRN (17:31)
[2018-11-23] MEDS ORDERED: hydrOXYzine PAMOATE 25 MG CAPSULE (FP) PO PRN (17:31)
[2018-11-23] MEDS ORDERED: MAGNESIUM CITRATE 300 ML BOTTLE PO PRN (17:31)
[2018-11-23] MEDS ORDERED: MAGNESIUM HYDROX 2400MG/30ML ORAL SUSPENSION 30 ML CUP PO PRN (17:31)
[2018-11-23] MEDS ORDERED: ACETAMINOPHEN 325 MG TABLET (FP) PO PRN ×2 (17:31)
[2018-11-23] MEDS ORDERED: MAG HYDROX/AL HYDROX/SIMETH 30 ML UNIT-DOSE CUP PO PRN (17:31)
[2018-11-23] MEDS ORDERED: BISMUTH SUBSALICYLATE 524 MG/30 ML UD PO PRN (17:31)
[2018-11-23] MEDS ORDERED: MENTHOL/PHENOL 1 EACH UD MM PRN (17:31)
[2018-11-23] MEDS ORDERED: chlordiazePOXIDE HCL 25 MG CAPSULE PO PRN (17:32)
[2018-11-23] MEDS: chlordiazePOXIDE HCL 25 MG CAPSULE PO SCH ×2 (18:36→22:31)
[2018-11-23] MEDS: THIAMINE HCL 100 MG TABLET (FP) PO SCH (22:31)
[2018-11-24] MEDS: chlordiazePOXIDE HCL 25 MG CAPSULE PO SCH ×4 (05:34→22:49)
[2018-11-24] MEDS: PRENATAL VITAMINS W/ FOLIC ACID TABLET (FP) PO SCH (10:22)
[2018-11-24 10:28] LABS: ALBUMIN 3.2 g/dl (3.4-5.0); BILIRUBIN,TOTAL 0.4 mg/dL (0.2-1); BLOOD UREA NITROGEN 13.5 mg/dL (7-18); CALCIUM 8.7 mg/dL (8.5-10.1); CREATININE 0.5 mg/dL (0.55-1.3); POTASSIUM 3.7 mmol/L (3.5-5.1); TOT PROT 5.8 g/dl (6.4-8.2)
[2018-11-24 10:40] LABS: HEMATOCRIT 38.4 % (32.4-45.2); HEMOGLOBIN 12.7 GM/dL (10.7-15.3); MCHC 33.2 g/dl (32.0-36.0); MEAN CELL VOLUME 96.2 fl (80-96); MEAN PLT VOLUME 8.2 fl (7.5-11.1); RBC 3.99 M/mm3 (3.60-5.2); RDW 14.7 % (11.6-15.6); WHITE BLOOD COUNT 3.7 K/mm3 (4.0-10.0)
[2018-11-24 11:26] LABS: PLATELET COUNT 209 K/MM3 (134-434)
--- NOTE | 2018-11-24 11:44 | PN ---
"[facility] CIWA - CIWA Score Nausea/Vomitin-No Nausea/No Vomiting Muscle Tremors: 4-Moderate,w/Arms Extend Anxiety: 4-Mod. Anxious/Guarded Agitation: 2 Paroxysmal Sweats: 2 Orientation: 0-Oriented Tacttile Disturbances: 2-Mild Itch/Numbness/Burn Auditory Disturbances: 0-None Visual Disturbances: 2-Mild Sensitivity Headache: 0-None Present CIWA-Ar Total Score: 16 S Progress Note (SOAP) Subjective: Anxious, Tremors, Sweating. Objective: PATIENT A & O X 3, OBSERVED AMBULATING ON UNIT UNASSISTED. IN NO ACUTE DISTRESS. 11/24/18 11:41 Vital Signs Temperature 96.9 F L 11/24/18 09:30 Pulse Rate 66 11/24/18 09:30 Respiratory Rate 16 11/24/18 09:30 Blood Pressure 90/65 11/24/18 09:30 O2 Sat by Pulse Oximetry (%) Laboratory Tests 11/24/18 11/24/18 07:50 07:50 WBC 3.7 L RBC 3.99 Hgb 12.7 Hct 38.4 MCV 96.2 H MCH 32.0 MCHC 33.2 RDW 14.7 Plt Count 209 MPV 8.2 Sodium 138 Potassium 3.7 Chloride 104 Carbon Dioxide 30 Anion Gap 5 L BUN 13.5 Creatinine 0.5 L Est GFR (CKD-EPI)AfAm 128.07 Est GFR (CKD-EPI)NonAf 110.50 Random Glucose 96 Calcium 8.7 Total Bilirubin 0.4 AST 11 L ALT 17 Alkaline Phosphatase 72 Total Protein 5.8 L Albumin 3.2 L LABS NOTED. Assessment: 11/24/18 11:45 WITHDRAWAL SYMPTOMS. ENCOUNTER FOR SUBOXONE MAINTENANCE THERAPY. Plan: CONTINUE DETOX. INCREASE DAILY PO WATER INTAKE. PATIENT REPORTS HISTORY OF PRESCRIBED SUBOXONE MAINTENANCE ON OUTPATIENT BASIS. PER PHARMACIST GARCIA AT [facility] ([place], [place]), PATIENT LAST FILLED PRESCRIPTION FOR SUBOXONE, 8/2MG PO DAILY FOR 30 DAYS ON 09/2018. THIS AND SUBOXONE PRESCRIPTION HISTORY CONFIRMED VIA [facility]. SEE BELOW. WILL ORDER FOR THIS DETOX ADMISSION. Confidential Drug Utilization Report Search Terms: jason galindo, 1965 Search Date: 11/24/2018 11:54:31 AM The Drug Utilization Report below displays all of the controlled substance prescriptions, if any, that your patient has filled in the last twelve months. The information displayed on this report is compiled from pharmacy submissions to the Department, and accurately reflects the information as submitted by the pharmacies. This report was requested by: Manohar Menon | Reference #: [id number] You have not added a ALICIA number. Keeping your ALICIA number(s) up to date on the My ALICIA Numbers page will enable the separation of your prescriptions from others ' in the search results. Others' Prescriptions Patient Name: Jason Galindo Date: 1965 Address: [address] [place] [address] Sex: Female Rx Written Rx Dispensed Drug Quantity Days Supply Prescriber Name 10/30/2018 10/31/2018 buprenorphine-naloxone 8-2 mg sl film 30 30 Flavio Miranda MD Patient Name: Jason Galindo Date: 1965 Address: [address] [place] [address] Sex: Female Rx Written Rx Dispensed Drug Quantity Days Supply Prescriber Name 10/01/2018 10/01/2018 buprenorphine-naloxone 8-2 mg sl film 30 30 Malcolm-Nickie, Vivette 09/03/2018 09/03/2018 buprenorphine-naloxone 8-2 mg sl film 30 30 Fowler-Nickie, Alexandraette 07/27/2018 07/27/2018 buprenorphine-naloxone 8-2 mg sl film 30 30 Jose Hare MD 07/13/2018 07/13/2018 suboxone 4 mg-1 mg sl film 30 15 Jose Hare MD 04/27/2018 04/27/2018 suboxone 8 mg-2 mg sl film 30 30 Jose Hare MD 03/21/2018 03/22/2018 suboxone 8 mg-2 mg sl film 30 30 Flavio Miranda MD 02/20/2018 02/21/2018 suboxone 8 mg-2 mg sl film 30 30 Jose Hare MD 01/18/2018 01/18/2018 suboxone 8 mg-2 mg sl film 30 30 Jose Hare MD Patient Name: Jason Galindo Date: 1965 Address: [address] [place] [address] Sex: Female Rx Written Rx Dispensed Drug Quantity Days Supply Prescriber Name 12/15/2017 12/15/2017 suboxone 2 mg-0.5 mg sl film 90 30 Jose Hare MD * - Drugs marked with an asterisk are compound drugs. If the compound drug is made up of more than one controlled substance, then each controlled substance will be a separate row in the table."
[2018-11-24] MEDS ORDERED: SUBOXONE PO SCH (12:00)
[2018-11-24] MEDS: BUPRENORPHINE/NALOXONE 8 MG/2 MG FILM PACKET SL SCH (12:49)
[2018-11-24] MEDS: THIAMINE HCL 100 MG TABLET (FP) PO SCH (22:48)
[2018-11-24] MEDS: MELATONIN 5 MG TABLETS PO PRN (22:49)
[2018-11-25] MEDS: chlordiazePOXIDE HCL 25 MG CAPSULE PO SCH ×2 (05:36→11:22)
[2018-11-25] MEDS: PRENATAL VITAMINS W/ FOLIC ACID TABLET (FP) PO SCH (09:34)
[2018-11-25] MEDS: BUPRENORPHINE/NALOXONE 8 MG/2 MG FILM PACKET SL SCH (09:35)
--- NOTE | 2018-11-25 15:08 | PN ---
S CIWA - CIWA Score Nausea/Vomitin-No Nausea/No Vomiting Muscle Tremors: 3 Anxiety: 4-Mod. Anxious/Guarded Agitation: 3 Paroxysmal Sweats: 1-Minimal Palms Moist Orientation: 0-Oriented Tacttile Disturbances: 0-None Auditory Disturbances: 0-None Visual Disturbances: 0-None Headache: 0-None Present CIWA-Ar Total Score: 11 BHS Progress Note (SOAP) Subjective: ANXIETY, SWEATS, INTERMITTENT SLEEP Objective: 11/25/18 15:07 Vital Signs - 24 hr 11/24/18 11/24/18 11/25/18 18:31 21:53 00:30 Temperature 97.7 F 97.3 F L Pulse Rate 73 58 L Respiratory 18 17 18 Rate Blood Pressure 92/68 94/71 11/25/18 11/25/18 11/25/18 03:30 03:55 06:28 Temperature 96.9 F L Pulse Rate 63 Respiratory 18 18 18 Rate Blood Pressure 98/68 11/25/18 11/25/18 09:38 13:31 Temperature 97.1 F L 97.7 F Pulse Rate 62 78 Respiratory 18 18 Rate Blood Pressure 90/65 92/65 Laboratory Tests 11/24/18 11/24/18 11/24/18 07:50 07:50 07:50 WBC 3.7 L RBC 3.99 Hgb 12.7 Hct 38.4 MCV 96.2 H MCH 32.0 MCHC 33.2 RDW 14.7 Plt Count 209 MPV 8.2 Sodium 138 Potassium 3.7 Chloride 104 Carbon Dioxide 30 Anion Gap 5 L BUN 13.5 Creatinine 0.5 L Est GFR (CKD-EPI)AfAm 128.07 Est GFR (CKD-EPI)NonAf 110.50 Random Glucose 96 Calcium 8.7 Total Bilirubin 0.4 AST 11 L ALT 17 Alkaline Phosphatase 72 Total Protein 5.8 L Albumin 3.2 L RPR Titer Nonreactive Assessment: 11/25/18 15:07 WITHDRAWAL SX Plan: CONTINUE DETOX
[2018-11-25] MEDS ORDERED: chlordiazePOXIDE HCL 10 MG CAPSULE PO PRN (17:00)
[2018-11-25] MEDS: chlordiazePOXIDE HCL 10 MG CAPSULE PO SCH ×2 (17:59→22:17)
[2018-11-25] MEDS: THIAMINE HCL 100 MG TABLET (FP) PO SCH (22:17)
[2018-11-25] MEDS: MELATONIN 5 MG TABLETS PO PRN (22:17)
[2018-11-26] MEDS: chlordiazePOXIDE HCL 10 MG CAPSULE PO SCH ×3 (05:20→17:12)
[2018-11-26] MEDS: PRENATAL VITAMINS W/ FOLIC ACID TABLET (FP) PO SCH (10:26)
[2018-11-26] MEDS: BUPRENORPHINE/NALOXONE 8 MG/2 MG FILM PACKET SL SCH (10:26)
--- NOTE | 2018-11-26 16:12 | PN ---
S CIWA - CIWA Score Nausea/Vomitin-No Nausea/No Vomiting Muscle Tremors: 3 Anxiety: 3 Agitation: 1-Slight > Activity Paroxysmal Sweats: No Perspiration Orientation: 0-Oriented Tacttile Disturbances: 0-None Auditory Disturbances: 0-None Visual Disturbances: 2-Mild Sensitivity Headache: 0-None Present CIWA-Ar Total Score: 9 BHS Progress Note (SOAP) Subjective: Fatigue, Tremors, Anxious. Objective: PATIENT A & O X 3, OBSERVED AMBULATING ON UNIT UNASSISTED. IN NO ACUTE DISTRESS. 11/26/18 16:13 Vital Signs Temperature 97.8 F 11/26/18 13:33 Pulse Rate 68 11/26/18 13:33 Respiratory Rate 18 11/26/18 13:33 Blood Pressure 102/71 11/26/18 13:33 O2 Sat by Pulse Oximetry (%) Laboratory Tests 11/23/18 11/24/18 11/24/18 17:05 07:50 07:50 WBC 3.7 L RBC 3.99 Hgb 12.7 Hct 38.4 MCV 96.2 H MCH 32.0 MCHC 33.2 RDW 14.7 Plt Count 209 MPV 8.2 Sodium 138 Potassium 3.7 Chloride 104 Carbon Dioxide 30 Anion Gap 5 L BUN 13.5 Creatinine 0.5 L Est GFR (CKD-EPI)AfAm 128.07 Est GFR (CKD-EPI)NonAf 110.50 Random Glucose 96 Calcium 8.7 Total Bilirubin 0.4 AST 11 L ALT 17 Alkaline Phosphatase 72 Total Protein 5.8 L Albumin 3.2 L POC Urine HCG, Qual Negative RPR Titer 11/24/18 07:50 WBC RBC Hgb Hct MCV MCH MCHC RDW Plt Count MPV Sodium Potassium Chloride Carbon Dioxide Anion Gap BUN Creatinine Est GFR (CKD-EPI)AfAm Est GFR (CKD-EPI)NonAf Random Glucose Calcium Total Bilirubin AST ALT Alkaline Phosphatase Total Protein Albumin POC Urine HCG, Qual RPR Titer Nonreactive LABS NOTED. Assessment: 11/26/18 16:14 WITHDRAWAL SYMPTOMS. LEUKOPENIA. Plan: CONTINUE DETOX.
--- NOTE | 2018-11-26 17:30 | CONSULT ---
[facility] Psychiatric Consult - Data Date of interview: 11/26/18 Admission source: [facility] Identifying data: This is one of multiple admissions to [facility] for this 53 y/ o female self-referred for detoxification (alcohol). Patient is , a mother of three, homeless (skilled nursing), unemployed and deprived of a source of income. Substance Abuse History: Discussed with patient. Ms Galindo confirms a long standing history of alcohol abuse. Details in current [facility] report as follows : Smoking history: Never smoked. Have you smoked in the past 12 months: No. Hx Chewing Tobacco Use: No. Substances abused. Alcohol. Substance route: Oral. Frequency: Daily. Amount used: 2.5 pints of vodka. Age of first use: 9. Date of last use: 11/22/18 Medical History: History of seizure disorder and hypo Psychiatric History: Patient admits to a history of three psychiatric hospitalizations ([facility]).Diagnoesd with MDD and Anxiety Disorder. Currently, the patient sees a psychiatrist at [facility] in [facility] for medication management (paxil + seroquel + wellbutrin). Ms Galindo declares that she has remained adherent only to seroquel (the two other drugs have not been taken for some time). Patient denies history of suicide attempts. Physical/Sexual Abuse/Trauma History: Heavy trauma : recent of ( overdose). Additional Comment: Drug screen is negative. Mental Status Exam - Mental Status Exam Alert and Oriented to: Time, Place, Person Cognitive Function: Good Patient Appearance: Well Groomed (short stature, overweight) Mood: Sad, Nervous, Withdrawn, Anxious Affect: Mood Congruent, Constricted Patient Behavior: Fatigued, Appropriate, Cooperative Speech Pattern: Clear, Appropriate Voice Loudness: Normal Thought Process: Goal Oriented Thought Disorder: Not Present Hallucinations: Denies Suicidal Ideation: Denies Homicidal Ideation: Denies Insight/Judgement: Poor Sleep: Poorly, Difficulty falling asleep Appetite: Good Gait/Station: Normal Psychiatric Findings - Problem List (Clarence 1, 2,3) (1) Alcohol dependence with uncomplicated withdrawal Current Visit: Yes Status: Acute (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 Sleep hygiene. Support. Detoxification. AA meetings. Relapse prevention (MAT) : discussed with the patient. Medications resumed (patient's request) : paxil 20 mg po daily + seroquel 100 mg po hs. Side effects/benefits of both drugs are discussed. Patient gave verbal consent to Observation.
[2018-11-26] MEDS ORDERED: QUEtiapine FUMARATE 50 MG TABLET PO SCH (22:00)
[2018-11-26] MEDS ORDERED: QUEtiapine FUMARATE 100 MG TABLET (FP) PO SCH (22:00)
[2018-11-26] MEDS: THIAMINE HCL 100 MG TABLET (FP) PO SCH (22:06)
[2018-11-27] MEDS: chlordiazePOXIDE HCL 10 MG CAPSULE PO SCH (05:50)
[2018-11-27] MEDS ORDERED: PARoxetine HCL 20 MG TABLET PO SCH (07:00)
[2018-11-27 09:08] VITALS: BP 89/64; PULSE 68; TEMP 98.3
[2018-11-27] MEDS: BUPRENORPHINE/NALOXONE 8 MG/2 MG FILM PACKET SL SCH (10:18)
[2018-11-27] MEDS: PRENATAL VITAMINS W/ FOLIC ACID TABLET (FP) PO SCH (10:18)
--- NOTE | 2018-11-27 12:37 | PN ---
S CIWA - CIWA Score Nausea/Vomitin-No Nausea/No Vomiting Muscle Tremors: None Anxiety: 0-No Anxiety, at Ease Agitation: 0-Normal Activity Paroxysmal Sweats: No Perspiration Orientation: 0-Oriented Tacttile Disturbances: 0-None Auditory Disturbances: 0-None Visual Disturbances: 0-None Headache: 0-None Present CIWA-Ar Total Score: 0 BHS Progress Note (SOAP) Subjective: pt states she is leaving today to rehab, doing well O: Vital Signs - 24 hr 11/26/18 11/26/18 11/26/18 13:33 17:25 21:29 Temperature 97.8 F 97.3 F L 97.4 F L Pulse Rate 68 68 73 Respiratory 18 16 16 Rate Blood Pressure 102/71 91/65 93/65 11/27/18 11/27/18 11/27/18 00:30 03:30 06:11 Temperature 97.7 F Pulse Rate 74 Respiratory 18 18 16 Rate Blood Pressure 93/64 11/27/18 09:07 Temperature 98.3 F Pulse Rate 68 Respiratory 18 Rate Blood Pressure 89/64 L Laboratory Tests 11/23/18 11/24/18 11/24/18 17:05 07:50 07:50 WBC 3.7 L RBC 3.99 Hgb 12.7 Hct 38.4 MCV 96.2 H MCH 32.0 MCHC 33.2 RDW 14.7 Plt Count 209 MPV 8.2 Sodium 138 Potassium 3.7 Chloride 104 Carbon Dioxide 30 Anion Gap 5 L BUN 13.5 Creatinine 0.5 L Est GFR (CKD-EPI)AfAm 128.07 Est GFR (CKD-EPI)NonAf 110.50 Random Glucose 96 Calcium 8.7 Total Bilirubin 0.4 AST 11 L ALT 17 Alkaline Phosphatase 72 Total Protein 5.8 L Albumin 3.2 L POC Urine HCG, Qual Negative RPR Titer 11/24/18 07:50 WBC RBC Hgb Hct MCV MCH MCHC RDW Plt Count MPV Sodium Potassium Chloride Carbon Dioxide Anion Gap BUN Creatinine Est GFR (CKD-EPI)AfAm Est GFR (CKD-EPI)NonAf Random Glucose Calcium Total Bilirubin AST ALT Alkaline Phosphatase Total Protein Albumin POC Urine HCG, Qual RPR Titer Nonreactive a/p: continue alcohol detox protocol- to complete today, transfer to rehab
== END 2018-11-27 12:35 | disposition other institution (70) | DRG 773 ==
LOC: YASAS 12:55 → Y3N 17:33
PROVIDERS: ADMIT Surgery; ATTEND Surgery
PROC: HZ2ZZZZ Detoxification Services for Substance Abuse Treatment (ICD-10-PCS; principal; 2018-11-23)
DX: F10.230 Alcohol dependence with withdrawal, uncomplicated (principal); F10.24 Alcohol dependence with alcohol-induced mood disorder; F11.20 Opioid dependence, uncomplicated; G47.00 Insomnia, unspecified; D72.819 Decreased white blood cell count, unspecified; K21.9 Gastro-esophageal reflux disease without esophagitis; Z86.69 Personal history of other diseases of the nervous system and sense organs; Z91.5 Personal history of self-harm
CPT/HCPCS: 36415; 71046-TC-FY; 80053; 81025; 85027; 86593

== ENCOUNTER 2018-11-27 11:37 | Inpatient (IN) | payer OTHER ==
--- NOTE | 2018-11-27 14:39 | DS ---
[facility] Detox Discharge Summary Admission Date: 11/27/18 - History Present History: Alcohol Dependence, Opioid Dependence Pertinent Past History: pt on suboxone, completed alcohol detox protocol- going to rehab today - Physical Exam Results Vital Signs: Vital Signs Temperature 97.6 F 11/27/18 12:34 Pulse Rate 64 11/27/18 12:34 Respiratory Rate 18 11/27/18 12:34 Blood Pressure 97/67 11/27/18 12:34 O2 Sat by Pulse Oximetry (%) - Treatment Hospital Course: Detox Protocol Followed, Detoxed Safely, Responded well, Discharged Condition Good, Rehab Referral Accepted - Medication Discharge Medications: Ambulatory Orders Paroxetine HCl [Paxil -] 20 mg PO DAILY #30 tablet 09/21/17 Quetiapine Fumarate [Seroquel -] 200 mg PO HS #30 tablet 09/21/17 Carbamazepine [Carbamazepine ER] 100 mg PO Q12H 30 Days #60 cpmp.12hr 09/26/17 Paroxetine HCl [Paxil] 20 mg PO AM #30 tablet 09/27/17 Quetiapine Fumarate [Seroquel -] 200 mg PO HS #30 tablet 09/27/17 Suboxone 8 mg-2 mg Sl Tablets 8 mg PO DAILY 11/23/18 Wellbutrin - 11/23/18 - AMA Did Patient Leave Against Medical Advice: No
[2018-11-27] MEDS ORDERED: hydrOXYzine PAMOATE 50 MG CAPSULE (FP) PO PRN (14:40)
[2018-11-27] MEDS ORDERED: MAG HYDROX/AL HYDROX/SIMETH 30 ML UNIT-DOSE CUP PO PRN (14:40)
[2018-11-27] MEDS ORDERED: LOPERAMIDE HCL 2 MG CAPSULE PO PRN (14:40)
[2018-11-27] MEDS ORDERED: ACETAMINOPHEN 325 MG TABLET (FP) PO PRN (14:40)
[2018-11-27] MEDS ORDERED: MAGNESIUM CITRATE 300 ML BOTTLE PO PRN (14:40)
[2018-11-27] MEDS ORDERED: MAGNESIUM HYDROX 2400MG/30ML ORAL SUSPENSION 30 ML CUP PO PRN (14:40)
[2018-11-27] MEDS ORDERED: P-EPHED 60MG/TRIPROLIDI 2.5MG TABLET PO PRN (14:40)
[2018-11-27] MEDS ORDERED: MENTHOL/PHENOL 1 EACH UD MM PRN (14:40)
[2018-11-27] MEDS ORDERED: IBUPROFEN 400 MG TABLET (FP) PO PRN (14:40)
[2018-11-27] MEDS ORDERED: guaiFENesin 200 MG/10 ML 10 ML UNIT-DOSE CUPS PO PRN (14:40)
--- NOTE | 2018-11-27 14:40 | HP ---
[facility] Rehab Assess/Revision - Admission History Admitted to Rehab from: [facility] - Vital signs Vital Signs: Vital Signs Period Temp Pulse Resp BP Sys/Shipley Pulse Ox Last 24 Hr 97.6 F 64 18 97/67 - Findings Detox History & Physical reviewed: Yes Concur with findings: Yes Inpatient Rehab Admission - Rehab Decision to Admit Inpatient rehab admission?: Yes - Initial Determination Are CD services needed?: Yes Free of communicable disease: Yes Not in need of hospitalization: Yes - Rehab Admission Criteria Previous failed treatment: Yes Poor recovery environment: Yes Comorbidities: Yes Lacks judgement: Yes Patient is meeting Inpatient Rehab admission criteria:: Yes (pt on suboxone, admitted for rehab after alcohol detox)
[2018-11-27] MEDS: QUEtiapine FUMARATE 100 MG TABLET (FP) PO SCH (21:03)
[2018-11-27] MEDS: THIAMINE HCL 100 MG TABLET (FP) PO SCH (21:03)
[2018-11-27] MEDS ORDERED: MELATONIN 5 MG TABLETS PO PRN (22:00)
[2018-11-28] MEDS: PARoxetine HCL 20 MG TABLET PO SCH (06:39)
[2018-11-28] MEDS ORDERED: BUPRENORPHINE/NALOXONE 8 MG/2 MG FILM PACKET SL SCH (10:00)
[2018-11-28] MEDS: PRENATAL VITAMINS W/ FOLIC ACID TABLET (FP) PO SCH (10:10)
[2018-11-28] MEDS: BUPRENORPHINE/NALOXONE 8 MG/2 MG FILM PACKET SL SCH (10:10)
[2018-11-28] MEDS: THIAMINE HCL 100 MG TABLET (FP) PO SCH (21:29)
[2018-11-28] MEDS: QUEtiapine FUMARATE 100 MG TABLET (FP) PO SCH (21:29)
[2018-11-29] MEDS: PARoxetine HCL 20 MG TABLET PO SCH (06:20)
[2018-11-29] MEDS: PRENATAL VITAMINS W/ FOLIC ACID TABLET (FP) PO SCH (10:09)
[2018-11-29] MEDS: BUPRENORPHINE/NALOXONE 8 MG/2 MG FILM PACKET SL SCH (10:09)
[2018-11-29] MEDS ORDERED: COLLOIDAL OATMEAL 1 BAR EACH TP PRN (13:51)
--- NOTE | 2018-11-29 15:26 | PN ---
[facility] Progress Note (SOAP) Subjective: patient c/o changes in left nipple. Pt stated that left nipple appeared more inverted compared to right nipple. Patient has not had a mamogram yet. Patient also had a PAP smear that showed "abnormal results." stated that PCP indicated that further testing was needed to determine significance of abnormality. Patient is perimenopausal. Objective: Breast Examination: Skin clear, no discoloration noted to either breast, size and shape the same, both nipples inverted. no lumps palpated in either breast, tail of breast or axillae. No tenderness with palpation. Vaginal exam: deferred. Vital Signs (72 hours) 11/27/18 11/28/18 11/28/18 12:34 00:30 03:30 Temperature 97.6 F Pulse Rate 64 Respiratory 18 18 18 Rate Blood Pressure 97/67 11/28/18 11/29/18 11/29/18 07:10 00:30 03:30 Temperature 97.4 F L Pulse Rate 66 Respiratory 18 16 16 Rate Blood Pressure 79/60 L 11/29/18 06:55 Temperature 97.6 F Pulse Rate 64 Respiratory 18 Rate Blood Pressure 95/62 11/29/18 15:22 Laboratory Last Values Free T4 Cancelled 11/28/18 08:20 TSH 4.51 uIU/ml (0.358-3.74) H 11/28/18 08:20 11/29/18 15:26 Assessment: Inverted nipples, Normal breast exam Self-report of abnormal PAP smear. 11/29/18 15:24 11/29/18 15:27 11/29/18 15:30 Plan: PLAN: advised patient to follow up with PCP upon discharge for referral for mamogram. In addition, advised patient to follow-up with PCP for repeat PAP or referral for further testing. Explained to patient changes in cervical and breast tissue that happen as a woman enters menopause. Patient accepted teaching and will meet with counselor to make PCP appointments before discharge.
[2018-11-29] MEDS: THIAMINE HCL 100 MG TABLET (FP) PO SCH (21:36)
[2018-11-29] MEDS: QUEtiapine FUMARATE 100 MG TABLET (FP) PO SCH (21:36)
[2018-11-30] MEDS: PARoxetine HCL 20 MG TABLET PO SCH (06:36)
[2018-11-30] MEDS: BUPRENORPHINE/NALOXONE 8 MG/2 MG FILM PACKET SL SCH (10:02)
[2018-11-30] MEDS: PRENATAL VITAMINS W/ FOLIC ACID TABLET (FP) PO SCH (10:02)
[2018-11-30] MEDS: THIAMINE HCL 100 MG TABLET (FP) PO SCH (21:20)
[2018-11-30] MEDS: QUEtiapine FUMARATE 100 MG TABLET (FP) PO SCH (21:20)
[2018-12-01] MEDS: PARoxetine HCL 20 MG TABLET PO SCH (06:39)
[2018-12-01] MEDS: BUPRENORPHINE/NALOXONE 8 MG/2 MG FILM PACKET SL SCH (10:06)
[2018-12-01] MEDS: PRENATAL VITAMINS W/ FOLIC ACID TABLET (FP) PO SCH (10:06)
[2018-12-01] MEDS ORDERED: PT OWN MED DRAWER 7, Y5N ONE ×2 (19:31→23:30)
[2018-12-01] MEDS: QUEtiapine FUMARATE 100 MG TABLET (FP) PO SCH (21:40)
[2018-12-01] MEDS: THIAMINE HCL 100 MG TABLET (FP) PO SCH (21:40)
[2018-12-02] MEDS: PARoxetine HCL 20 MG TABLET PO SCH (06:43)
[2018-12-02] MEDS: BUPRENORPHINE/NALOXONE 8 MG/2 MG FILM PACKET SL SCH (09:41)
[2018-12-02] MEDS: PRENATAL VITAMINS W/ FOLIC ACID TABLET (FP) PO SCH (09:41)
[2018-12-02] MEDS: THIAMINE HCL 100 MG TABLET (FP) PO SCH (21:18)
[2018-12-02] MEDS: QUEtiapine FUMARATE 100 MG TABLET (FP) PO SCH (21:18)
[2018-12-03] MEDS: PARoxetine HCL 20 MG TABLET PO SCH (06:44)
[2018-12-03] MEDS: PRENATAL VITAMINS W/ FOLIC ACID TABLET (FP) PO SCH (09:32)
[2018-12-03] MEDS: BUPRENORPHINE/NALOXONE 8 MG/2 MG FILM PACKET SL SCH (09:32)
[2018-12-03] MEDS ORDERED: PT OWN MED DRAWER 7, Y5N ONE ×2 (19:35→21:37)
[2018-12-03] MEDS: QUEtiapine FUMARATE 100 MG TABLET (FP) PO SCH (21:17)
[2018-12-03] MEDS: THIAMINE HCL 100 MG TABLET (FP) PO SCH (21:17)
[2018-12-04] MEDS: PARoxetine HCL 20 MG TABLET PO SCH (06:15)
[2018-12-04] MEDS: PRENATAL VITAMINS W/ FOLIC ACID TABLET (FP) PO SCH (09:32)
[2018-12-04] MEDS: BUPRENORPHINE/NALOXONE 8 MG/2 MG FILM PACKET SL SCH (09:32)
[2018-12-04] MEDS: QUEtiapine FUMARATE 100 MG TABLET (FP) PO SCH (21:20)
[2018-12-04] MEDS: THIAMINE HCL 100 MG TABLET (FP) PO SCH (21:20)
[2018-12-05] MEDS: PARoxetine HCL 20 MG TABLET PO SCH (06:32)
[2018-12-05] MEDS: BUPRENORPHINE/NALOXONE 8 MG/2 MG FILM PACKET SL SCH (10:23)
[2018-12-05] MEDS: PRENATAL VITAMINS W/ FOLIC ACID TABLET (FP) PO SCH (10:23)
[2018-12-05] MEDS: QUEtiapine FUMARATE 100 MG TABLET (FP) PO SCH (21:39)
[2018-12-05] MEDS: THIAMINE HCL 100 MG TABLET (FP) PO SCH (21:39)
[2018-12-06] MEDS: PARoxetine HCL 20 MG TABLET PO SCH (06:13)
[2018-12-06] MEDS: PRENATAL VITAMINS W/ FOLIC ACID TABLET (FP) PO SCH (09:27)
[2018-12-06] MEDS: BUPRENORPHINE/NALOXONE 8 MG/2 MG FILM PACKET SL SCH (09:27)
[2018-12-06] MEDS: THIAMINE HCL 100 MG TABLET (FP) PO SCH (21:23)
[2018-12-06] MEDS: QUEtiapine FUMARATE 100 MG TABLET (FP) PO SCH (21:24)
[2018-12-07] MEDS: PARoxetine HCL 20 MG TABLET PO SCH (06:52)
[2018-12-07] MEDS: PRENATAL VITAMINS W/ FOLIC ACID TABLET (FP) PO SCH (09:57)
[2018-12-07] MEDS: BUPRENORPHINE/NALOXONE 8 MG/2 MG FILM PACKET SL SCH (09:57)
[2018-12-07] MEDS: THIAMINE HCL 100 MG TABLET (FP) PO SCH (21:36)
[2018-12-07] MEDS: QUEtiapine FUMARATE 100 MG TABLET (FP) PO SCH (21:37)
[2018-12-08] MEDS: PARoxetine HCL 20 MG TABLET PO SCH (06:08)
[2018-12-08] MEDS: BUPRENORPHINE/NALOXONE 8 MG/2 MG FILM PACKET SL SCH (09:42)
[2018-12-08] MEDS: PRENATAL VITAMINS W/ FOLIC ACID TABLET (FP) PO SCH (09:42)
[2018-12-08] MEDS: THIAMINE HCL 100 MG TABLET (FP) PO SCH (21:06)
[2018-12-08] MEDS: QUEtiapine FUMARATE 100 MG TABLET (FP) PO SCH (21:06)
[2018-12-09] MEDS: PARoxetine HCL 20 MG TABLET PO SCH (06:30)
[2018-12-09] MEDS: PRENATAL VITAMINS W/ FOLIC ACID TABLET (FP) PO SCH (09:44)
[2018-12-09] MEDS: BUPRENORPHINE/NALOXONE 8 MG/2 MG FILM PACKET SL SCH (09:44)
--- NOTE | 2018-12-09 16:02 | PN ---
[facility] Progress Note Note: Patient is scheduled for discharge tomorrow. Scripts for 30 days supply of medications(Paxil 20 mg/day, Seroquel 100 mg/hs) will be electronically transmitted to [facility] at [address] [place] [id number]
[2018-12-09] MEDS: THIAMINE HCL 100 MG TABLET (FP) PO SCH (21:35)
[2018-12-09] MEDS: QUEtiapine FUMARATE 100 MG TABLET (FP) PO SCH (21:35)
[2018-12-10] MEDS: PARoxetine HCL 20 MG TABLET PO SCH (06:48)
[2018-12-10 07:19] VITALS: BP 107/68; PULSE 57; TEMP 97.9
[2018-12-10] MEDS: PRENATAL VITAMINS W/ FOLIC ACID TABLET (FP) PO SCH (09:38)
[2018-12-10] MEDS: BUPRENORPHINE/NALOXONE 8 MG/2 MG FILM PACKET SL SCH (09:38)
--- NOTE | 2018-12-10 10:35 | PN ---
[facility] Progress Note (SOAP) Subjective: PT COMPLETED REHAB AND DISCHARGED TODAY. PT ATTENDED/PARTICIPATED IN GROUP ACTIVITIES ON THE UNIT. PT MET WITH HER COUNSELOR AND HAS BEEN REFERRED TO [facility] FOR CD AFTERCARE. PT REPORTS SHE HAS A PCP DR. ROONEY FOR MEDICAL AND DR. LAUGHLIN FOR PSYCH AT [facility] FOR MANAGEMENTS. PT IS ON SUBOXONE AND WILL FOLLOW UP WITH HER PCP FOR CONTINUATION. COURTESY RX X #7 /7DAYS ELECTRONICALLY SENT TO PTS PHARMACY FOR ORDER CHECKER. PT IS ALERT O X 3. DENIES S/H/I. Objective: 12/10/18 11:34 Vital Signs 12/10/18 07:18 Temperature 97.9 F Pulse Rate 57 L Respiratory 18 Rate Blood Pressure 107/68 Laboratory Tests 11/28/18 11/28/18 08:20 08:20 Free T4 [place] Cancelled TSH 4.51 H PT TO FOLLOW UP WITH PCP WITH LAB RESULT FOR MANAGEMENT OF HYPOTHYROIDISM. Home Medications Medication Instructions Recorded Carbamazepine [Carbamazepine ER] 100 mg PO Q12H 30 Days #60 09/26/17 cpmp.12hr Quetiapine Fumarate [Seroquel -] 200 mg PO HS #30 tablet 09/27/17 Suboxone 8 mg-2 mg Sl Tablets 8 mg PO DAILY 11/23/18 Wellbutrin - 11/23/18 Quetiapine Fumarate [Seroquel] 100 mg PO HS 11/27/18 Paroxetine HCl [Paxil] 20 mg PO AM #30 tablet 12/09/18 Buprenorphine/Naloxone [Suboxone 1 each SL DAILY #7 packet MDD 1 12/10/18 8Mg/2Mg Sl Film -] Assessment: 12/10/18 11:35 NAD MEDICALLY STABLE [facility] Inpatient Services Medical - Diagnosis (1) Alcohol dependence Status: Chronic (2) Encounter for monitoring Suboxone maintenance therapy Status: Chronic (3) Seizure Qualifiers: Convulsion type: unspecified Qualified Code(s): R56.9 - Unspecified convulsions Status: Suspected (4) Hypothyroidism Qualifiers: Hypothyroidism type: unspecified Qualified Code(s): E03.9 - Hypothyroidism , unspecified Status: Chronic Plan: D/C TODAY FOLLOW UP WITH CD AFTERCARE RECOMMENDED. FOLLOW UP WITH PCP FOR MEDICAL MANAGEMENT WITHIN 1-2 WEEKS AFTER DISCHARGE. COPIES OF LAB RESULT PROVIDED TO PATIENT FOR VISIT TO PCP FOR MANAGEMENT.
== END 2018-12-10 10:13 | disposition home or self-care (01) | DRG 772 ==
LOC: YASAS 11:37 → Y3E 11:57
PROVIDERS: ADMIT Neuromusculoskeletal Medicine & OMM; ATTEND Neuromusculoskeletal Medicine & OMM
PROC: HZ42ZZZ Group Counseling for Substance Abuse Treatment, Cognitive-Behavioral (ICD-10-PCS; principal; 2018-11-27)
DX: F10.20 Alcohol dependence, uncomplicated (principal); F11.20 Opioid dependence, uncomplicated; I10 Essential (primary) hypertension; N64.59 Other signs and symptoms in breast; K21.9 Gastro-esophageal reflux disease without esophagitis; Z86.69 Personal history of other diseases of the nervous system and sense organs; Z91.5 Personal history of self-harm
CPT/HCPCS: 36415; 84436; 84443

== ENCOUNTER 2020-10-16 16:41 | Inpatient (IN) | payer OTHER ==
[2020-10-16 19:24] VITALS: BMI 32.5
[2020-10-16] MEDS ORDERED: IBUPROFEN 400 MG TABLET (FP) PO PRN (21:55)
[2020-10-16] MEDS ORDERED: LOPERAMIDE HCL 2 MG CAPSULE PO PRN (21:55)
[2020-10-16] MEDS ORDERED: guaiFENesin 200 MG/10 ML 10 ML UNIT-DOSE CUPS PO PRN (21:55)
[2020-10-16] MEDS ORDERED: ACETAMINOPHEN 325 MG TABLET (FP) PO PRN (21:55)
[2020-10-16] MEDS ORDERED: P-EPHED 60MG/TRIPROLIDI 2.5MG TABLET PO PRN (21:55)
[2020-10-16] MEDS ORDERED: MAG HYDROX/AL HYDROX/SIMETH 30 ML UNIT-DOSE CUP PO PRN (21:55)
[2020-10-16] MEDS ORDERED: NICOTINE POLACRILEX 2 MG GUM BC PRN (21:55)
[2020-10-16] MEDS ORDERED: MAGNESIUM CITRATE 300 ML BOTTLE PO PRN (21:55)
[2020-10-16] MEDS ORDERED: BUPRENORPHINE/NALOXONE 8 MG/2 MG FILM (DETOX) SL SCH (22:00)
[2020-10-17] MEDS ORDERED: TUBERCULIN PPD 5 TU/0.1ML VIAL ID ONE (00:40)
[2020-10-17] MEDS ORDERED: BUPRENORPHINE/NALOXONE 8 MG/2 MG FILM PACKET SL ONE (00:45)
[2020-10-17] MEDS: MELATONIN 5 MG TABLETS PO SCH ×2 (00:50→21:36)
[2020-10-17] MEDS: THIAMINE HCL 100 MG TABLET (FP) PO SCH ×2 (00:50→21:36)
[2020-10-17] MEDS: hydrOXYzine PAMOATE 25 MG CAPSULE (FP) PO SCH ×6 (00:50→21:37)
[2020-10-17] MEDS: GABAPENTIN 100 MG CAPSULE PO SCH ×3 (06:22→21:37)
[2020-10-17] MEDS: LEVOTHYROXINE NA 25 MCG TABLET (FP) PO SCH (07:11)
[2020-10-17] MEDS: ACAMPROSATE CALCIUM 333 MG TABLET.DR PO SCH ×3 (07:59→21:37)
[2020-10-17] MEDS ORDERED: BUPRENORPHINE/NALOXONE 8 MG/2 MG FILM (DETOX) SL SCH (09:30)
[2020-10-17] MEDS ORDERED: BUPRENORPHINE/NALOXONE 8 MG/2 MG FILM PACKET ONE (09:33)
[2020-10-17] MEDS: buPROPion HCL 75 MG TABLET PO SCH ×2 (10:10→21:37)
[2020-10-17] MEDS: PRENATAL VITAMINS W/ FOLIC ACID TABLET (FP) PO SCH (10:10)
[2020-10-17] MEDS: NICOTINE 7 MG/24 HOURS TOPICAL PATCH TD SCH (10:11)
[2020-10-17] MEDS: ARIPiprazole 10 MG TABLET PO SCH (10:11)
[2020-10-17] MEDS: PARoxetine HCL 30 MG TABLET PO SCH (11:41)
[2020-10-17 12:46] LABS: HEMATOCRIT 39.8 % (32.4-45.2); HEMOGLOBIN 13.4 GM/dL (10.7-15.3); MCH 33.3 pg (25.7-33.7); MCHC 33.7 g/dl (32.0-36.0); MEAN CELL VOLUME 98.8 fl (80-96); PLATELET COUNT 170 K/MM3 (134-434); RBC 4.03 M/mm3 (3.60-5.2); RDW 14.2 % (11.6-15.6); WHITE BLOOD COUNT 3.3 K/mm3 (4.0-10.0)
[2020-10-17 13:04] LABS: CALCIUM 9.5 mg/dL (8.5-10.1)
[2020-10-17 13:07] LABS: CREATININE 0.7 mg/dL (0.55-1.3)
[2020-10-17 13:07] LABS: EPI CELLS 20 /uL (0-25.1); HYALINE CASTS 4 /uL (0-3.1); PH,URINE 5.5 (5.0-8.0); URINE APPEARANCE CLEAR; URINE BACTERIA 96 /uL (0-1359); URINE BILIRUBIN NEGATIVE (NEGATIVE); URINE COLOR YELLOW; URINE GLUCOSE (UA) NEGATIVE (NEGATIVE); URINE KETONE TRACE (NEGATIVE); URINE LEUK ESTERASE 2+ (NEGATIVE); URINE NITRITE NEGATIVE (NEGATIVE); URINE PROTEIN NEGATIVE (NEGATIVE); URINE RBC 5 /uL (0-23.9); URINE WBC 32 /uL (0-25.8)
[2020-10-17 13:09] LABS: BILIRUBIN,TOTAL 0.4 mg/dL (0.2-1); TOT PROT 6.5 g/dl (6.4-8.2)
[2020-10-17] MEDS: BUPRENORPHINE/NALOXONE 8 MG/2 MG FILM PACKET SL SCH (19:24)
[2020-10-17] MEDS: ATORVASTATIN CA 10 MG TABLET (FP) PO SCH (21:55)
[2020-10-18] MEDS: BUPRENORPHINE/NALOXONE 8 MG/2 MG FILM PACKET SL SCH ×2 (06:29→18:09)
[2020-10-18] MEDS: ACAMPROSATE CALCIUM 333 MG TABLET.DR PO SCH ×3 (06:29→21:34)
[2020-10-18] MEDS: LEVOTHYROXINE NA 25 MCG TABLET (FP) PO SCH (06:30)
[2020-10-18] MEDS: GABAPENTIN 100 MG CAPSULE PO SCH ×3 (06:30→21:34)
[2020-10-18] MEDS: hydrOXYzine PAMOATE 25 MG CAPSULE (FP) PO SCH ×5 (06:30→21:35)
[2020-10-18] MEDS: NICOTINE 7 MG/24 HOURS TOPICAL PATCH TD SCH (10:11)
[2020-10-18] MEDS: PRENATAL VITAMINS W/ FOLIC ACID TABLET (FP) PO SCH (10:11)
[2020-10-18] MEDS: ARIPiprazole 10 MG TABLET PO SCH (10:11)
[2020-10-18] MEDS: PARoxetine HCL 30 MG TABLET PO SCH (10:11)
[2020-10-18] MEDS: buPROPion HCL 75 MG TABLET PO SCH ×2 (10:11→21:36)
[2020-10-18] MEDS: MELATONIN 5 MG TABLETS PO SCH (21:34)
[2020-10-18] MEDS: THIAMINE HCL 100 MG TABLET (FP) PO SCH (21:34)
[2020-10-18] MEDS: ATORVASTATIN CA 10 MG TABLET (FP) PO SCH (21:34)
[2020-10-19] MEDS: BUPRENORPHINE/NALOXONE 8 MG/2 MG FILM PACKET SL SCH ×2 (06:23→18:45)
[2020-10-19] MEDS: GABAPENTIN 100 MG CAPSULE PO SCH ×3 (06:24→21:24)
[2020-10-19] MEDS: hydrOXYzine PAMOATE 25 MG CAPSULE (FP) PO SCH ×5 (06:24→21:24)
[2020-10-19] MEDS: ACAMPROSATE CALCIUM 333 MG TABLET.DR PO SCH ×3 (06:24→21:24)
[2020-10-19] MEDS: LEVOTHYROXINE NA 25 MCG TABLET (FP) PO SCH (07:08)
[2020-10-19] MEDS ORDERED: PT OWN MED DRAWER 7, Y5N ONE (08:37)
[2020-10-19] MEDS: PARoxetine HCL 10 MG TABLET PO SCH (10:12)
[2020-10-19] MEDS: ARIPiprazole 10 MG TABLET PO SCH (10:12)
[2020-10-19] MEDS: PRENATAL VITAMINS W/ FOLIC ACID TABLET (FP) PO SCH (10:12)
[2020-10-19] MEDS: NICOTINE 7 MG/24 HOURS TOPICAL PATCH TD SCH (10:12)
[2020-10-19] MEDS: buPROPion HCL 75 MG TABLET PO SCH ×2 (10:13→21:24)
[2020-10-19] MEDS: THIAMINE HCL 100 MG TABLET (FP) PO SCH (21:24)
[2020-10-19] MEDS: MELATONIN 5 MG TABLETS PO SCH (21:24)
[2020-10-19] MEDS: ATORVASTATIN CA 10 MG TABLET (FP) PO SCH (21:24)
[2020-10-20 06:08] LABS: SARS-CoV-2 NAA Not Detected (Not Detected)
[2020-10-20] MEDS: ACAMPROSATE CALCIUM 333 MG TABLET.DR PO SCH ×3 (06:23→21:27)
[2020-10-20] MEDS: LEVOTHYROXINE NA 25 MCG TABLET (FP) PO SCH (06:23)
[2020-10-20] MEDS: GABAPENTIN 100 MG CAPSULE PO SCH ×3 (06:23→21:27)
[2020-10-20] MEDS: hydrOXYzine PAMOATE 25 MG CAPSULE (FP) PO SCH (06:52)
[2020-10-20] MEDS: BUPRENORPHINE/NALOXONE 8 MG/2 MG FILM PACKET SL SCH ×2 (06:52→19:09)
[2020-10-20] MEDS ORDERED: hydrOXYzine PAMOATE 25 MG CAPSULE (FP) PO PRN (09:58)
[2020-10-20] MEDS: ARIPiprazole 10 MG TABLET PO SCH (10:01)
[2020-10-20] MEDS: PRENATAL VITAMINS W/ FOLIC ACID TABLET (FP) PO SCH (10:01)
[2020-10-20] MEDS: buPROPion HCL 75 MG TABLET PO SCH ×2 (10:02→21:27)
[2020-10-20] MEDS: NICOTINE 7 MG/24 HOURS TOPICAL PATCH TD SCH (10:02)
[2020-10-20] MEDS: PARoxetine HCL 10 MG TABLET PO SCH (10:02)
[2020-10-20] MEDS: MELATONIN 5 MG TABLETS PO SCH (21:27)
[2020-10-20] MEDS: ATORVASTATIN CA 10 MG TABLET (FP) PO SCH (21:27)
[2020-10-20] MEDS: THIAMINE HCL 100 MG TABLET (FP) PO SCH (21:27)
[2020-10-21] MEDS: LEVOTHYROXINE NA 25 MCG TABLET (FP) PO SCH (06:06)
[2020-10-21] MEDS: BUPRENORPHINE/NALOXONE 8 MG/2 MG FILM PACKET SL SCH ×2 (06:06→18:10)
[2020-10-21] MEDS: GABAPENTIN 100 MG CAPSULE PO SCH ×3 (06:06→21:34)
[2020-10-21] MEDS: ACAMPROSATE CALCIUM 333 MG TABLET.DR PO SCH ×3 (06:06→21:33)
[2020-10-21] MEDS: NICOTINE 7 MG/24 HOURS TOPICAL PATCH TD SCH (10:04)
[2020-10-21] MEDS: ARIPiprazole 10 MG TABLET PO SCH (10:04)
[2020-10-21] MEDS: buPROPion HCL 75 MG TABLET PO SCH ×2 (10:04→21:33)
[2020-10-21] MEDS: PRENATAL VITAMINS W/ FOLIC ACID TABLET (FP) PO SCH (10:05)
[2020-10-21] MEDS: PARoxetine HCL 10 MG TABLET PO SCH (10:05)
[2020-10-21] MEDS: MELATONIN 5 MG TABLETS PO SCH (21:34)
[2020-10-21] MEDS: ATORVASTATIN CA 10 MG TABLET (FP) PO SCH (21:34)
[2020-10-21] MEDS: THIAMINE HCL 100 MG TABLET (FP) PO SCH (21:34)
[2020-10-21] MEDS: MAGNESIUM HYDROX 2400MG/30ML ORAL SUSPENSION 30 ML CUP PO PRN (21:35)
[2020-10-22] MEDS: ACAMPROSATE CALCIUM 333 MG TABLET.DR PO SCH ×3 (05:52→23:41)
[2020-10-22] MEDS: GABAPENTIN 100 MG CAPSULE PO SCH ×3 (05:52→21:33)
[2020-10-22] MEDS: BUPRENORPHINE/NALOXONE 8 MG/2 MG FILM PACKET SL SCH ×2 (05:52→17:40)
[2020-10-22] MEDS: LEVOTHYROXINE NA 25 MCG TABLET (FP) PO SCH (07:02)
[2020-10-22] MEDS: NICOTINE 7 MG/24 HOURS TOPICAL PATCH TD SCH (10:11)
[2020-10-22] MEDS: ARIPiprazole 10 MG TABLET PO SCH (10:12)
[2020-10-22] MEDS: PRENATAL VITAMINS W/ FOLIC ACID TABLET (FP) PO SCH (10:12)
[2020-10-22] MEDS: buPROPion HCL 75 MG TABLET PO SCH ×2 (10:12→21:32)
[2020-10-22] MEDS: PARoxetine HCL 10 MG TABLET PO SCH (10:13)
[2020-10-22] MEDS: ATORVASTATIN CA 10 MG TABLET (FP) PO SCH (21:32)
[2020-10-22] MEDS: THIAMINE HCL 100 MG TABLET (FP) PO SCH (21:33)
[2020-10-22] MEDS: MELATONIN 5 MG TABLETS PO SCH (21:33)
[2020-10-23] MEDS: ACAMPROSATE CALCIUM 333 MG TABLET.DR PO SCH ×3 (06:16→21:25)
[2020-10-23] MEDS: LEVOTHYROXINE NA 25 MCG TABLET (FP) PO SCH (06:16)
[2020-10-23] MEDS: BUPRENORPHINE/NALOXONE 8 MG/2 MG FILM PACKET SL SCH ×2 (06:16→18:43)
[2020-10-23] MEDS: GABAPENTIN 100 MG CAPSULE PO SCH ×3 (06:16→21:25)
[2020-10-23] MEDS: buPROPion HCL 75 MG TABLET PO SCH ×2 (10:11→21:25)
[2020-10-23] MEDS: ARIPiprazole 10 MG TABLET PO SCH (10:12)
[2020-10-23] MEDS: PARoxetine HCL 10 MG TABLET PO SCH (10:13)
[2020-10-23] MEDS: PRENATAL VITAMINS W/ FOLIC ACID TABLET (FP) PO SCH (10:13)
[2020-10-23] MEDS: NICOTINE 7 MG/24 HOURS TOPICAL PATCH TD SCH (10:13)
[2020-10-23] MEDS ORDERED: PT OWN MED DRAWER 7, Y5N ONE (18:58)
[2020-10-23] MEDS: MELATONIN 5 MG TABLETS PO SCH (21:25)
[2020-10-23] MEDS: THIAMINE HCL 100 MG TABLET (FP) PO SCH (21:25)
[2020-10-23] MEDS: ATORVASTATIN CA 10 MG TABLET (FP) PO SCH (21:25)
[2020-10-24] MEDS: BUPRENORPHINE/NALOXONE 8 MG/2 MG FILM PACKET SL SCH ×2 (06:10→17:31)
[2020-10-24] MEDS: LEVOTHYROXINE NA 25 MCG TABLET (FP) PO SCH (06:10)
[2020-10-24] MEDS: GABAPENTIN 100 MG CAPSULE PO SCH ×3 (06:10→21:29)
[2020-10-24] MEDS ORDERED: PT OWN MED DRAWER 7, Y5N ONE ×2 (08:10→10:00)
[2020-10-24] MEDS: ACAMPROSATE CALCIUM 333 MG TABLET.DR PO SCH ×3 (08:14→21:29)
[2020-10-24] MEDS: ARIPiprazole 10 MG TABLET PO SCH (09:59)
[2020-10-24] MEDS: PARoxetine HCL 10 MG TABLET PO SCH (09:59)
[2020-10-24] MEDS: buPROPion HCL 75 MG TABLET PO SCH ×2 (09:59→21:29)
[2020-10-24] MEDS: PRENATAL VITAMINS W/ FOLIC ACID TABLET (FP) PO SCH (09:59)
[2020-10-24] MEDS: NICOTINE 7 MG/24 HOURS TOPICAL PATCH TD SCH (10:01)
[2020-10-24] MEDS: THIAMINE HCL 100 MG TABLET (FP) PO SCH (21:29)
[2020-10-24] MEDS: MELATONIN 5 MG TABLETS PO SCH (21:29)
[2020-10-24] MEDS: ATORVASTATIN CA 10 MG TABLET (FP) PO SCH (21:29)
[2020-10-25] MEDS: GABAPENTIN 100 MG CAPSULE PO SCH ×3 (06:09→21:16)
[2020-10-25] MEDS: ACAMPROSATE CALCIUM 333 MG TABLET.DR PO SCH ×3 (06:09→21:16)
[2020-10-25] MEDS: LEVOTHYROXINE NA 25 MCG TABLET (FP) PO SCH (06:09)
[2020-10-25] MEDS: BUPRENORPHINE/NALOXONE 8 MG/2 MG FILM PACKET SL SCH ×2 (06:09→17:57)
[2020-10-25] MEDS: NICOTINE 7 MG/24 HOURS TOPICAL PATCH TD SCH (09:47)
[2020-10-25] MEDS: PARoxetine HCL 10 MG TABLET PO SCH (09:47)
[2020-10-25] MEDS: ARIPiprazole 10 MG TABLET PO SCH (09:47)
[2020-10-25] MEDS: buPROPion HCL 75 MG TABLET PO SCH ×2 (09:47→22:16)
[2020-10-25] MEDS: PRENATAL VITAMINS W/ FOLIC ACID TABLET (FP) PO SCH (09:47)
[2020-10-25] MEDS ORDERED: PT OWN MED DRAWER 7, Y5N ONE (18:37)
[2020-10-25] MEDS: THIAMINE HCL 100 MG TABLET (FP) PO SCH (21:15)
[2020-10-25] MEDS: MELATONIN 5 MG TABLETS PO SCH (21:15)
[2020-10-25] MEDS: ATORVASTATIN CA 10 MG TABLET (FP) PO SCH (21:16)
[2020-10-26] MEDS: BUPRENORPHINE/NALOXONE 8 MG/2 MG FILM PACKET SL SCH ×2 (06:08→19:05)
[2020-10-26] MEDS: ACAMPROSATE CALCIUM 333 MG TABLET.DR PO SCH ×3 (06:09→21:30)
[2020-10-26] MEDS: GABAPENTIN 100 MG CAPSULE PO SCH ×3 (06:09→21:28)
[2020-10-26] MEDS: LEVOTHYROXINE NA 25 MCG TABLET (FP) PO SCH (06:09)
[2020-10-26] MEDS: PRENATAL VITAMINS W/ FOLIC ACID TABLET (FP) PO SCH (10:06)
[2020-10-26] MEDS: buPROPion HCL 75 MG TABLET PO SCH ×2 (10:07→21:28)
[2020-10-26] MEDS: NICOTINE 7 MG/24 HOURS TOPICAL PATCH TD SCH (10:07)
[2020-10-26] MEDS: PARoxetine HCL 10 MG TABLET PO SCH (10:07)
[2020-10-26] MEDS: ARIPiprazole 10 MG TABLET PO SCH (10:39)
[2020-10-26] MEDS: ATORVASTATIN CA 10 MG TABLET (FP) PO SCH (21:28)
[2020-10-26] MEDS: THIAMINE HCL 100 MG TABLET (FP) PO SCH (21:29)
[2020-10-26] MEDS: MELATONIN 5 MG TABLETS PO SCH (21:29)
[2020-10-27] MEDS: ACAMPROSATE CALCIUM 333 MG TABLET.DR PO SCH ×3 (06:25→21:22)
[2020-10-27] MEDS: LEVOTHYROXINE NA 25 MCG TABLET (FP) PO SCH (06:25)
[2020-10-27] MEDS: GABAPENTIN 100 MG CAPSULE PO SCH ×3 (06:25→21:20)
[2020-10-27] MEDS: BUPRENORPHINE/NALOXONE 8 MG/2 MG FILM PACKET SL SCH ×2 (06:25→18:11)
[2020-10-27] MEDS: buPROPion HCL 75 MG TABLET PO SCH ×2 (10:15→21:21)
[2020-10-27] MEDS: PRENATAL VITAMINS W/ FOLIC ACID TABLET (FP) PO SCH (10:15)
[2020-10-27] MEDS: ARIPiprazole 10 MG TABLET PO SCH (10:16)
[2020-10-27] MEDS: NICOTINE 7 MG/24 HOURS TOPICAL PATCH TD SCH (10:16)
[2020-10-27] MEDS: PARoxetine HCL 10 MG TABLET PO SCH (10:16)
[2020-10-27] MEDS: ATORVASTATIN CA 10 MG TABLET (FP) PO SCH (21:20)
[2020-10-27] MEDS: THIAMINE HCL 100 MG TABLET (FP) PO SCH (21:21)
[2020-10-27] MEDS: MELATONIN 5 MG TABLETS PO SCH (21:34)
[2020-10-28] MEDS: ACAMPROSATE CALCIUM 333 MG TABLET.DR PO SCH ×3 (06:16→21:15)
[2020-10-28] MEDS: LEVOTHYROXINE NA 25 MCG TABLET (FP) PO SCH (06:17)
[2020-10-28] MEDS: BUPRENORPHINE/NALOXONE 8 MG/2 MG FILM PACKET SL SCH ×2 (06:17→19:10)
[2020-10-28] MEDS: GABAPENTIN 100 MG CAPSULE PO SCH ×3 (06:17→21:15)
[2020-10-28] MEDS: NICOTINE 7 MG/24 HOURS TOPICAL PATCH TD SCH (09:44)
[2020-10-28] MEDS: PARoxetine HCL 10 MG TABLET PO SCH (09:44)
[2020-10-28] MEDS: ARIPiprazole 10 MG TABLET PO SCH (09:44)
[2020-10-28] MEDS: PRENATAL VITAMINS W/ FOLIC ACID TABLET (FP) PO SCH (09:44)
[2020-10-28] MEDS: buPROPion HCL 75 MG TABLET PO SCH ×2 (09:44→21:15)
[2020-10-28] MEDS: THIAMINE HCL 100 MG TABLET (FP) PO SCH (21:15)
[2020-10-28] MEDS: ATORVASTATIN CA 10 MG TABLET (FP) PO SCH (21:15)
[2020-10-28] MEDS: MELATONIN 5 MG TABLETS PO SCH (21:15)
[2020-10-29] MEDS: GABAPENTIN 100 MG CAPSULE PO SCH ×3 (06:11→21:24)
[2020-10-29] MEDS: LEVOTHYROXINE NA 25 MCG TABLET (FP) PO SCH (06:11)
[2020-10-29] MEDS: ACAMPROSATE CALCIUM 333 MG TABLET.DR PO SCH ×3 (06:11→21:25)
[2020-10-29] MEDS: BUPRENORPHINE/NALOXONE 8 MG/2 MG FILM PACKET SL SCH ×2 (06:11→17:49)
[2020-10-29] MEDS: NICOTINE 7 MG/24 HOURS TOPICAL PATCH TD SCH (10:17)
[2020-10-29] MEDS: ARIPiprazole 10 MG TABLET PO SCH (10:17)
[2020-10-29] MEDS: PARoxetine HCL 10 MG TABLET PO SCH (10:18)
[2020-10-29] MEDS: buPROPion HCL 75 MG TABLET PO SCH ×2 (10:18→21:25)
[2020-10-29] MEDS: PRENATAL VITAMINS W/ FOLIC ACID TABLET (FP) PO SCH (10:18)
[2020-10-29] MEDS: ATORVASTATIN CA 10 MG TABLET (FP) PO SCH (21:24)
[2020-10-29] MEDS: THIAMINE HCL 100 MG TABLET (FP) PO SCH (21:25)
[2020-10-29] MEDS: MELATONIN 5 MG TABLETS PO SCH (21:26)
[2020-10-30] MEDS: GABAPENTIN 100 MG CAPSULE PO SCH ×3 (06:24→21:23)
[2020-10-30] MEDS: BUPRENORPHINE/NALOXONE 8 MG/2 MG FILM PACKET SL SCH ×2 (06:24→17:40)
[2020-10-30] MEDS: LEVOTHYROXINE NA 25 MCG TABLET (FP) PO SCH (06:24)
[2020-10-30] MEDS: ACAMPROSATE CALCIUM 333 MG TABLET.DR PO SCH ×3 (06:24→21:23)
[2020-10-30] MEDS: ARIPiprazole 10 MG TABLET PO SCH (09:58)
[2020-10-30] MEDS: NICOTINE 7 MG/24 HOURS TOPICAL PATCH TD SCH (09:58)
[2020-10-30] MEDS: PRENATAL VITAMINS W/ FOLIC ACID TABLET (FP) PO SCH (09:58)
[2020-10-30] MEDS: PARoxetine HCL 10 MG TABLET PO SCH (09:58)
[2020-10-30] MEDS: buPROPion HCL 75 MG TABLET PO SCH ×2 (09:58→21:23)
[2020-10-30] MEDS: THIAMINE HCL 100 MG TABLET (FP) PO SCH (21:23)
[2020-10-30] MEDS: MELATONIN 5 MG TABLETS PO SCH (21:23)
[2020-10-30] MEDS: MAGNESIUM HYDROX 2400MG/30ML ORAL SUSPENSION 30 ML CUP PO PRN (21:25)
[2020-10-30] MEDS: ATORVASTATIN CA 10 MG TABLET (FP) PO SCH (21:26)
[2020-10-31] MEDS: BUPRENORPHINE/NALOXONE 8 MG/2 MG FILM PACKET SL SCH ×2 (06:13→17:49)
[2020-10-31] MEDS: LEVOTHYROXINE NA 25 MCG TABLET (FP) PO SCH (06:13)
[2020-10-31] MEDS: ACAMPROSATE CALCIUM 333 MG TABLET.DR PO SCH ×3 (06:13→21:37)
[2020-10-31] MEDS: GABAPENTIN 100 MG CAPSULE PO SCH ×3 (06:14→21:37)
[2020-10-31] MEDS: ARIPiprazole 10 MG TABLET PO SCH (10:07)
[2020-10-31] MEDS: PRENATAL VITAMINS W/ FOLIC ACID TABLET (FP) PO SCH (10:08)
[2020-10-31] MEDS: buPROPion HCL 75 MG TABLET PO SCH ×2 (10:08→21:37)
[2020-10-31] MEDS: NICOTINE 7 MG/24 HOURS TOPICAL PATCH TD SCH (10:08)
[2020-10-31] MEDS: PARoxetine HCL 10 MG TABLET PO SCH (10:09)
[2020-10-31] MEDS: MELATONIN 5 MG TABLETS PO SCH (21:37)
[2020-10-31] MEDS: THIAMINE HCL 100 MG TABLET (FP) PO SCH (21:37)
[2020-10-31] MEDS: ATORVASTATIN CA 10 MG TABLET (FP) PO SCH (21:37)
[2020-11-01] MEDS: ACAMPROSATE CALCIUM 333 MG TABLET.DR PO SCH ×3 (06:18→21:19)
[2020-11-01] MEDS: LEVOTHYROXINE NA 25 MCG TABLET (FP) PO SCH (06:18)
[2020-11-01] MEDS: GABAPENTIN 100 MG CAPSULE PO SCH ×3 (06:18→21:19)
[2020-11-01] MEDS: BUPRENORPHINE/NALOXONE 8 MG/2 MG FILM PACKET SL SCH ×2 (06:19→17:49)
[2020-11-01] MEDS: PRENATAL VITAMINS W/ FOLIC ACID TABLET (FP) PO SCH (09:44)
[2020-11-01] MEDS: ARIPiprazole 10 MG TABLET PO SCH (09:45)
[2020-11-01] MEDS: buPROPion HCL 75 MG TABLET PO SCH ×2 (09:46→21:19)
[2020-11-01] MEDS: MAGNESIUM HYDROX 2400MG/30ML ORAL SUSPENSION 30 ML CUP PO PRN (09:46)
[2020-11-01] MEDS: PARoxetine HCL 10 MG TABLET PO SCH (09:46)
[2020-11-01] MEDS: NICOTINE 7 MG/24 HOURS TOPICAL PATCH TD SCH (09:46)
[2020-11-01] MEDS: THIAMINE HCL 100 MG TABLET (FP) PO SCH (21:20)
[2020-11-01] MEDS: ATORVASTATIN CA 10 MG TABLET (FP) PO SCH (21:20)
[2020-11-01] MEDS: MELATONIN 5 MG TABLETS PO SCH (21:20)
[2020-11-02] MEDS: GABAPENTIN 100 MG CAPSULE PO SCH ×3 (05:54→21:14)
[2020-11-02] MEDS: ACAMPROSATE CALCIUM 333 MG TABLET.DR PO SCH ×3 (05:54→21:15)
[2020-11-02] MEDS: BUPRENORPHINE/NALOXONE 8 MG/2 MG FILM PACKET SL SCH ×2 (06:21→17:23)
[2020-11-02] MEDS: LEVOTHYROXINE NA 25 MCG TABLET (FP) PO SCH (06:28)
[2020-11-02] MEDS: buPROPion HCL 75 MG TABLET PO SCH ×2 (09:54→21:15)
[2020-11-02] MEDS: PARoxetine HCL 10 MG TABLET PO SCH (09:55)
[2020-11-02] MEDS: ARIPiprazole 10 MG TABLET PO SCH (09:55)
[2020-11-02] MEDS: PRENATAL VITAMINS W/ FOLIC ACID TABLET (FP) PO SCH (09:55)
[2020-11-02] MEDS: NICOTINE 7 MG/24 HOURS TOPICAL PATCH TD SCH (09:56)
[2020-11-02] MEDS: MELATONIN 5 MG TABLETS PO SCH (21:15)
[2020-11-02] MEDS: ATORVASTATIN CA 10 MG TABLET (FP) PO SCH (21:15)
[2020-11-02] MEDS: THIAMINE HCL 100 MG TABLET (FP) PO SCH (21:15)
[2020-11-03] MEDS: ACAMPROSATE CALCIUM 333 MG TABLET.DR PO SCH ×3 (06:08→21:20)
[2020-11-03] MEDS: LEVOTHYROXINE NA 25 MCG TABLET (FP) PO SCH (06:08)
[2020-11-03] MEDS: GABAPENTIN 100 MG CAPSULE PO SCH ×3 (06:08→21:19)
[2020-11-03] MEDS: BUPRENORPHINE/NALOXONE 8 MG/2 MG FILM PACKET SL SCH ×2 (06:08→18:49)
[2020-11-03] MEDS: NICOTINE 7 MG/24 HOURS TOPICAL PATCH TD SCH (10:09)
[2020-11-03] MEDS: buPROPion HCL 75 MG TABLET PO SCH ×2 (10:09→21:19)
[2020-11-03] MEDS: PRENATAL VITAMINS W/ FOLIC ACID TABLET (FP) PO SCH (10:09)
[2020-11-03] MEDS: PARoxetine HCL 10 MG TABLET PO SCH (10:09)
[2020-11-03] MEDS: ARIPiprazole 10 MG TABLET PO SCH (10:09)
[2020-11-03] MEDS: MAGNESIUM HYDROX 2400MG/30ML ORAL SUSPENSION 30 ML CUP PO PRN (14:28)
[2020-11-03] MEDS: THIAMINE HCL 100 MG TABLET (FP) PO SCH (21:19)
[2020-11-03] MEDS: ATORVASTATIN CA 10 MG TABLET (FP) PO SCH (21:20)
[2020-11-03] MEDS: MELATONIN 5 MG TABLETS PO SCH (21:20)
[2020-11-04] MEDS: GABAPENTIN 100 MG CAPSULE PO SCH ×3 (06:03→21:13)
[2020-11-04] MEDS: LEVOTHYROXINE NA 25 MCG TABLET (FP) PO SCH (06:03)
[2020-11-04] MEDS: ACAMPROSATE CALCIUM 333 MG TABLET.DR PO SCH ×3 (06:04→21:14)
[2020-11-04] MEDS: BUPRENORPHINE/NALOXONE 8 MG/2 MG FILM PACKET SL SCH ×2 (06:04→17:22)
[2020-11-04] MEDS: buPROPion HCL 75 MG TABLET PO SCH ×2 (10:12→21:13)
[2020-11-04] MEDS: ARIPiprazole 10 MG TABLET PO SCH (10:12)
[2020-11-04] MEDS: PARoxetine HCL 10 MG TABLET PO SCH (10:12)
[2020-11-04] MEDS: PRENATAL VITAMINS W/ FOLIC ACID TABLET (FP) PO SCH (10:12)
[2020-11-04] MEDS: NICOTINE 7 MG/24 HOURS TOPICAL PATCH TD SCH (10:14)
[2020-11-04] MEDS: ATORVASTATIN CA 10 MG TABLET (FP) PO SCH (21:13)
[2020-11-04] MEDS: THIAMINE HCL 100 MG TABLET (FP) PO SCH (21:14)
[2020-11-04] MEDS: MELATONIN 5 MG TABLETS PO SCH (21:14)
[2020-11-05] MEDS: ACAMPROSATE CALCIUM 333 MG TABLET.DR PO SCH ×3 (06:14→21:19)
[2020-11-05] MEDS: GABAPENTIN 100 MG CAPSULE PO SCH ×3 (06:14→21:17)
[2020-11-05] MEDS: LEVOTHYROXINE NA 25 MCG TABLET (FP) PO SCH (06:14)
[2020-11-05] MEDS: BUPRENORPHINE/NALOXONE 8 MG/2 MG FILM PACKET SL SCH ×2 (06:14→17:49)
[2020-11-05] MEDS: PARoxetine HCL 10 MG TABLET PO SCH (10:22)
[2020-11-05] MEDS: buPROPion HCL 75 MG TABLET PO SCH ×2 (10:22→21:17)
[2020-11-05] MEDS: PRENATAL VITAMINS W/ FOLIC ACID TABLET (FP) PO SCH (10:22)
[2020-11-05] MEDS: NICOTINE 7 MG/24 HOURS TOPICAL PATCH TD SCH (10:22)
[2020-11-05] MEDS: ARIPiprazole 10 MG TABLET PO SCH (10:22)
[2020-11-05] MEDS: MAGNESIUM HYDROX 2400MG/30ML ORAL SUSPENSION 30 ML CUP PO PRN (14:10)
[2020-11-05] MEDS: THIAMINE HCL 100 MG TABLET (FP) PO SCH (21:18)
[2020-11-05] MEDS: MELATONIN 5 MG TABLETS PO SCH (21:18)
[2020-11-05] MEDS: ATORVASTATIN CA 10 MG TABLET (FP) PO SCH (21:18)
[2020-11-06] MEDS: BUPRENORPHINE/NALOXONE 8 MG/2 MG FILM PACKET SL SCH (06:01)
[2020-11-06] MEDS: LEVOTHYROXINE NA 25 MCG TABLET (FP) PO SCH (06:02)
[2020-11-06] MEDS: ACAMPROSATE CALCIUM 333 MG TABLET.DR PO SCH (06:02)
[2020-11-06] MEDS: GABAPENTIN 100 MG CAPSULE PO SCH (06:02)
[2020-11-06 06:45] VITALS: BP 90/62; PULSE 70; TEMP 97.7
[2020-11-06] MEDS: PRENATAL VITAMINS W/ FOLIC ACID TABLET (FP) PO SCH (09:07)
[2020-11-06] MEDS: PARoxetine HCL 10 MG TABLET PO SCH (09:07)
[2020-11-06] MEDS: buPROPion HCL 75 MG TABLET PO SCH (09:08)
[2020-11-06] MEDS ORDERED: PT OWN MED DRAWER 7, Y5N ONE (09:08)
[2020-11-06] MEDS: NICOTINE 7 MG/24 HOURS TOPICAL PATCH TD SCH (09:08)
[2020-11-06] MEDS: ARIPiprazole 10 MG TABLET PO SCH (09:08)
== END 2020-11-06 09:30 | disposition home or self-care (01) | DRG 772 ==
LOC: YASAS 16:41 → Y3W 23:11
PROVIDERS: ADMIT Allergy & Immunology; ATTEND Allergy & Immunology
PROC: HZ42ZZZ Group Counseling for Substance Abuse Treatment, Cognitive-Behavioral (ICD-10-PCS; principal; 2020-10-16)
DX: F10.20 Alcohol dependence, uncomplicated (principal); F32.9 Major depressive disorder, single episode, unspecified; F41.8 Other specified anxiety disorders; E03.9 Hypothyroidism, unspecified; Z51.81 Encounter for therapeutic drug level monitoring; Z86.69 Personal history of other diseases of the nervous system and sense organs
CPT/HCPCS: 36415; 80053; 81003; 85027; 86780; 87086; 93005; 93010; C9803; U0003; U0005

== ENCOUNTER 2020-12-29 10:30 | Inpatient (IN) | payer OTHER ==
[2020-12-29 10:50] VITALS: BMI 31.6
[2020-12-29] MEDS ORDERED: MAGNESIUM CITRATE 300 ML BOTTLE PO PRN (11:11)
[2020-12-29] MEDS ORDERED: IBUPROFEN 400 MG TABLET (FP) PO PRN (11:11)
[2020-12-29] MEDS ORDERED: METHOCARBAMOL 500 MG TABLET PO PRN (11:11)
[2020-12-29] MEDS ORDERED: MAG HYDROX/AL HYDROX/SIMETH 30 ML UNIT-DOSE CUP PO PRN (11:11)
[2020-12-29] MEDS ORDERED: MENTHOL/PHENOL 1 EACH UD MM PRN (11:11)
[2020-12-29] MEDS ORDERED: ONDANSETRON *ODT* 4 MG TABLET SL PRN (11:11)
[2020-12-29] MEDS ORDERED: LORazepam 1 MG TABLET PO PRN (11:11)
[2020-12-29] MEDS ORDERED: ACETAMINOPHEN 325 MG TABLET (FP) PO PRN ×2 (11:11)
[2020-12-29] MEDS ORDERED: BISMUTH SUBSALICYLATE 262 MG/15 ML BTL PO PRN (11:11)
[2020-12-29] MEDS ORDERED: MAGNESIUM HYDROX 2400MG/30ML ORAL SUSPENSION 30 ML CUP PO PRN (11:11)
[2020-12-29] MEDS: PRENATAL VITAMINS W/ FOLIC ACID TABLET (FP) PO SCH (12:42)
[2020-12-29] MEDS: hydrOXYzine PAMOATE 25 MG CAPSULE (FP) PO SCH ×3 (13:08→22:47)
[2020-12-29 13:29] LABS: ALBUMIN 4.1 g/dl (3.4-5.0); BLOOD UREA NITROGEN 8.7 mg/dL (7-18); CALCIUM 9.5 mg/dL (8.5-10.1)
[2020-12-29 13:30] LABS: HEMATOCRIT 35.6 % (32.4-45.2); HEMOGLOBIN 12.3 GM/dL (10.7-15.3); MCH 32.7 pg (25.7-33.7); MCHC 34.5 g/dl (32.0-36.0); MEAN CELL VOLUME 94.8 fl (80-96); MEAN PLT VOLUME 7.6 fl (7.5-11.1); PLATELET COUNT 192 10^3/uL (134-434); RBC 3.75 M/mm3 (3.60-5.2); RDW 15.5 % (11.6-15.6); WHITE BLOOD COUNT 4.6 K/mm3 (4.0-10.0)
[2020-12-29 13:33] LABS: CREATININE 0.6 mg/dL (0.55-1.3)
[2020-12-29 13:34] LABS: BILIRUBIN,TOTAL 1.3 mg/dL (0.2-1)
[2020-12-29] MEDS: LORazepam 2 MG TABLET PO SCH ×2 (17:44→22:47)
[2020-12-29] MEDS: THIAMINE HCL 100 MG TABLET (FP) PO SCH (22:47)
[2020-12-29] MEDS: BUPRENORPHINE/NALOXONE 8 MG/2 MG FILM PACKET SL SCH (22:47)
[2020-12-29] MEDS: MELATONIN 5 MG TABLETS PO SCH (22:47)
[2020-12-30] MEDS: hydrOXYzine PAMOATE 25 MG CAPSULE (FP) PO SCH ×5 (05:10→22:44)
[2020-12-30] MEDS: LORazepam 2 MG TABLET PO SCH ×4 (05:10→22:08)
[2020-12-30] MEDS: PRENATAL VITAMINS W/ FOLIC ACID TABLET (FP) PO SCH (10:43)
[2020-12-30] MEDS: BUPRENORPHINE/NALOXONE 8 MG/2 MG FILM PACKET SL SCH ×2 (10:43→22:06)
[2020-12-30] MEDS: ATORVASTATIN CA 10 MG TABLET (FP) PO SCH (22:06)
[2020-12-30] MEDS: THIAMINE HCL 100 MG TABLET (FP) PO SCH (22:06)
[2020-12-30] MEDS: MELATONIN 5 MG TABLETS PO SCH (22:44)
[2020-12-31] MEDS: hydrOXYzine PAMOATE 25 MG CAPSULE (FP) PO SCH ×5 (05:48→22:20)
[2020-12-31] MEDS: LORazepam 1 MG TABLET PO SCH ×4 (05:48→22:16)
[2020-12-31] MEDS: LEVOTHYROXINE NA 25 MCG TABLET (FP) PO SCH (06:05)
[2020-12-31] MEDS ORDERED: buPROPion HCL 100 MG TABLET PO SCH (10:00)
[2020-12-31] MEDS: PARoxetine HCL 20 MG TABLET PO SCH (10:25)
[2020-12-31] MEDS: ARIPiprazole 10 MG TABLET PO SCH (10:25)
[2020-12-31 10:26] LABS: BILIRUBIN,DIRECT 0.2 mg/dL (0.0-0.2)
[2020-12-31] MEDS: PRENATAL VITAMINS W/ FOLIC ACID TABLET (FP) PO SCH (10:26)
[2020-12-31] MEDS: BUPRENORPHINE/NALOXONE 8 MG/2 MG FILM PACKET SL SCH ×2 (10:26→22:16)
[2020-12-31 10:28] LABS: BILIRUBIN,TOTAL 0.6 mg/dL (0.2-1); TOT PROT 5.9 g/dl (6.4-8.2)
[2020-12-31 10:35] LABS: ALBUMIN 3.2 g/dl (3.4-5.0)
[2020-12-31] MEDS: GABAPENTIN 100 MG CAPSULE PO SCH ×2 (13:10→22:16)
[2020-12-31] MEDS: THIAMINE HCL 100 MG TABLET (FP) PO SCH (22:16)
[2020-12-31] MEDS: ATORVASTATIN CA 10 MG TABLET (FP) PO SCH (22:16)
[2020-12-31] MEDS: MELATONIN 5 MG TABLETS PO SCH (22:16)
[2021-01-01] MEDS ORDERED: LORazepam 0.5 MG TABLET PO PRN
[2021-01-01] MEDS: hydrOXYzine PAMOATE 25 MG CAPSULE (FP) PO SCH ×4 (06:27→17:10)
[2021-01-01] MEDS: LEVOTHYROXINE NA 25 MCG TABLET (FP) PO SCH (06:27)
[2021-01-01] MEDS: LORazepam 0.5 MG TABLET PO SCH ×3 (06:28→17:10)
[2021-01-01] MEDS: GABAPENTIN 100 MG CAPSULE PO SCH ×2 (06:28→14:42)
[2021-01-01] MEDS: PARoxetine HCL 20 MG TABLET PO SCH (10:11)
[2021-01-01] MEDS: BUPRENORPHINE/NALOXONE 8 MG/2 MG FILM PACKET SL SCH (10:11)
[2021-01-01] MEDS: ARIPiprazole 10 MG TABLET PO SCH (10:11)
[2021-01-01] MEDS: PRENATAL VITAMINS W/ FOLIC ACID TABLET (FP) PO SCH (10:12)
[2021-01-01 13:58] VITALS: BP 114/70; PULSE 91; TEMP 98
[2021-01-02] MEDS ORDERED: LORazepam 0.5 MG TABLET PO ONE (05:00)
== END 2021-01-01 17:19 | disposition other institution (70) | DRG 773 ==
LOC: YASAS 10:30 → Y6N 11:28
PROVIDERS: ADMIT Allergy & Immunology; ATTEND Allergy & Immunology
PROC: HZ2ZZZZ Detoxification Services for Substance Abuse Treatment (ICD-10-PCS; principal; 2020-12-29)
DX: F10.230 Alcohol dependence with withdrawal, uncomplicated (principal); F10.280 Alcohol dependence with alcohol-induced anxiety disorder; F11.20 Opioid dependence, uncomplicated; F33.1 Major depressive disorder, recurrent, moderate; E03.9 Hypothyroidism, unspecified; G47.00 Insomnia, unspecified; Z86.69 Personal history of other diseases of the nervous system and sense organs; Z56.0 Unemployment, unspecified; Z59.0 Homelessness
CPT/HCPCS: 36415; 80053; 80076; 81025; 82962; 85027; 86780; C9803; U0003; U0005

== ENCOUNTER 2021-01-01 17:56 | Inpatient (IN) | payer OTHER ==
[2021-01-01] MEDS ORDERED: MAG HYDROX/AL HYDROX/SIMETH 30 ML UNIT-DOSE CUP PO PRN (18:14)
[2021-01-01] MEDS ORDERED: LOPERAMIDE HCL 2 MG CAPSULE PO PRN (18:14)
[2021-01-01] MEDS ORDERED: MENTHOL/PHENOL 1 EACH UD MM PRN (18:14)
[2021-01-01] MEDS ORDERED: ACETAMINOPHEN 325 MG TABLET (FP) PO PRN (18:14)
[2021-01-01] MEDS ORDERED: P-EPHED 60MG/TRIPROLIDI 2.5MG TABLET PO PRN (18:14)
[2021-01-01] MEDS ORDERED: IBUPROFEN 400 MG TABLET (FP) PO PRN (18:14)
[2021-01-01] MEDS ORDERED: NICOTINE 10 MG CARTRIDGE (INHALER) IH PRN (18:14)
[2021-01-01] MEDS ORDERED: guaiFENesin 200 MG/10 ML 10 ML UNIT-DOSE CUPS PO PRN (18:14)
[2021-01-01] MEDS: BUPRENORPHINE/NALOXONE 8 MG/2 MG FILM PACKET SL SCH ×2 (19:51→21:25)
[2021-01-01] MEDS: MELATONIN 5 MG TABLETS PO SCH (21:25)
[2021-01-01] MEDS: THIAMINE HCL 100 MG TABLET (FP) PO SCH (21:25)
[2021-01-02] MEDS: BUPRENORPHINE/NALOXONE 8 MG/2 MG FILM PACKET SL SCH ×2 (10:26→22:05)
[2021-01-02] MEDS: PRENATAL VITAMINS W/ FOLIC ACID TABLET (FP) PO SCH (10:26)
[2021-01-02] MEDS: THIAMINE HCL 100 MG TABLET (FP) PO SCH (22:04)
[2021-01-02] MEDS: MELATONIN 5 MG TABLETS PO SCH (22:04)
[2021-01-03] MEDS: PRENATAL VITAMINS W/ FOLIC ACID TABLET (FP) PO SCH (10:11)
[2021-01-03] MEDS: BUPRENORPHINE/NALOXONE 8 MG/2 MG FILM PACKET SL SCH ×2 (10:12→22:02)
[2021-01-03] MEDS: THIAMINE HCL 100 MG TABLET (FP) PO SCH (22:01)
[2021-01-03] MEDS: ATORVASTATIN CA 10 MG TABLET (FP) PO SCH (22:01)
[2021-01-03] MEDS: MELATONIN 5 MG TABLETS PO SCH (22:01)
[2021-01-04] MEDS ORDERED: PT OWN MED DRAWER 7, Y5N ONE (06:36)
[2021-01-04] MEDS ORDERED: LEVOTHYROXINE NA 50 MCG TABLET (FP) PO SCH (07:00)
[2021-01-04] MEDS ORDERED: ARIPiprazole 5 MG TABLET ONE (10:38)
[2021-01-04] MEDS: PRENATAL VITAMINS W/ FOLIC ACID TABLET (FP) PO SCH (10:39)
[2021-01-04] MEDS: LEVOTHYROXINE NA 25 MCG TABLET (FP) PO SCH (10:39)
[2021-01-04] MEDS: BUPRENORPHINE/NALOXONE 8 MG/2 MG FILM PACKET SL SCH ×2 (10:40→22:29)
[2021-01-04] MEDS: ARIPiprazole 10 MG TABLET PO SCH (10:40)
[2021-01-04] MEDS: PARoxetine HCL 20 MG TABLET PO SCH (11:54)
[2021-01-04] MEDS: GABAPENTIN 100 MG CAPSULE PO SCH ×2 (14:27→22:27)
[2021-01-04] MEDS: THIAMINE HCL 100 MG TABLET (FP) PO SCH (22:27)
[2021-01-04] MEDS: ATORVASTATIN CA 10 MG TABLET (FP) PO SCH (22:27)
[2021-01-04] MEDS: MELATONIN 5 MG TABLETS PO SCH (22:27)
[2021-01-05] MEDS: LEVOTHYROXINE NA 25 MCG TABLET (FP) PO SCH (06:38)
[2021-01-05] MEDS: GABAPENTIN 100 MG CAPSULE PO SCH ×3 (06:38→21:38)
[2021-01-05] MEDS ORDERED: ARIPiprazole 5 MG TABLET ONE (09:03)
[2021-01-05] MEDS: BUPRENORPHINE/NALOXONE 8 MG/2 MG FILM PACKET SL SCH ×2 (10:25→21:39)
[2021-01-05] MEDS: PARoxetine HCL 20 MG TABLET PO SCH (10:26)
[2021-01-05] MEDS: PRENATAL VITAMINS W/ FOLIC ACID TABLET (FP) PO SCH (10:26)
[2021-01-05] MEDS: ARIPiprazole 10 MG TABLET PO SCH (10:26)
[2021-01-05] MEDS: MELATONIN 5 MG TABLETS PO SCH (21:39)
[2021-01-05] MEDS: THIAMINE HCL 100 MG TABLET (FP) PO SCH (21:39)
[2021-01-05] MEDS: ATORVASTATIN CA 10 MG TABLET (FP) PO SCH (21:39)
[2021-01-06] MEDS ORDERED: PT OWN MED DRAWER 7, Y5N ONE ×2 (03:08→12:27)
[2021-01-06] MEDS: LEVOTHYROXINE NA 25 MCG TABLET (FP) PO SCH (07:11)
[2021-01-06] MEDS: GABAPENTIN 100 MG CAPSULE PO SCH ×3 (07:12→21:23)
[2021-01-06] MEDS: PRENATAL VITAMINS W/ FOLIC ACID TABLET (FP) PO SCH (10:52)
[2021-01-06] MEDS: ARIPiprazole 10 MG TABLET PO SCH (10:53)
[2021-01-06] MEDS: BUPRENORPHINE/NALOXONE 8 MG/2 MG FILM PACKET SL SCH ×2 (10:56→21:23)
[2021-01-06] MEDS: PARoxetine HCL 20 MG TABLET PO SCH (12:21)
[2021-01-06] MEDS: THIAMINE HCL 100 MG TABLET (FP) PO SCH (21:23)
[2021-01-06] MEDS: ATORVASTATIN CA 10 MG TABLET (FP) PO SCH (21:23)
[2021-01-06] MEDS: MELATONIN 5 MG TABLETS PO SCH (21:23)
[2021-01-07] MEDS ORDERED: PT OWN MED DRAWER 7, Y5N ONE ×2 (06:12→07:05)
[2021-01-07] MEDS: GABAPENTIN 100 MG CAPSULE PO SCH ×3 (06:13→21:36)
[2021-01-07] MEDS: LEVOTHYROXINE NA 25 MCG TABLET (FP) PO SCH (07:04)
[2021-01-07] MEDS ORDERED: ARIPiprazole 5 MG TABLET ONE (08:47)
[2021-01-07] MEDS: PRENATAL VITAMINS W/ FOLIC ACID TABLET (FP) PO SCH (10:28)
[2021-01-07] MEDS: PARoxetine HCL 20 MG TABLET PO SCH (10:30)
[2021-01-07] MEDS: BUPRENORPHINE/NALOXONE 8 MG/2 MG FILM PACKET SL SCH ×2 (10:30→21:36)
[2021-01-07] MEDS: ARIPiprazole 10 MG TABLET PO SCH (10:30)
[2021-01-07] MEDS: THIAMINE HCL 100 MG TABLET (FP) PO SCH (21:36)
[2021-01-07] MEDS: ATORVASTATIN CA 10 MG TABLET (FP) PO SCH (21:36)
[2021-01-07] MEDS: MELATONIN 5 MG TABLETS PO SCH (21:36)
[2021-01-08] MEDS: GABAPENTIN 100 MG CAPSULE PO SCH ×3 (06:04→21:55)
[2021-01-08] MEDS: LEVOTHYROXINE NA 25 MCG TABLET (FP) PO SCH (06:04)
[2021-01-08] MEDS ORDERED: PT OWN MED DRAWER 7, Y5N ONE (09:06)
[2021-01-08] MEDS: PARoxetine HCL 20 MG TABLET PO SCH (10:33)
[2021-01-08] MEDS: BUPRENORPHINE/NALOXONE 8 MG/2 MG FILM PACKET SL SCH ×2 (10:33→21:55)
[2021-01-08] MEDS: ARIPiprazole 10 MG TABLET PO SCH (10:33)
[2021-01-08] MEDS: PRENATAL VITAMINS W/ FOLIC ACID TABLET (FP) PO SCH (10:33)
[2021-01-08] MEDS: MELATONIN 5 MG TABLETS PO SCH (21:54)
[2021-01-08] MEDS: THIAMINE HCL 100 MG TABLET (FP) PO SCH (21:55)
[2021-01-08] MEDS: ATORVASTATIN CA 10 MG TABLET (FP) PO SCH (21:55)
[2021-01-09] MEDS: LEVOTHYROXINE NA 25 MCG TABLET (FP) PO SCH (06:25)
[2021-01-09] MEDS: GABAPENTIN 100 MG CAPSULE PO SCH ×3 (06:25→21:52)
[2021-01-09] MEDS: ARIPiprazole 10 MG TABLET PO SCH (10:34)
[2021-01-09] MEDS: PRENATAL VITAMINS W/ FOLIC ACID TABLET (FP) PO SCH (10:34)
[2021-01-09] MEDS: BUPRENORPHINE/NALOXONE 8 MG/2 MG FILM PACKET SL SCH ×2 (10:35→21:52)
[2021-01-09] MEDS: PARoxetine HCL 20 MG TABLET PO SCH (10:35)
[2021-01-09] MEDS: MELATONIN 5 MG TABLETS PO SCH (21:51)
[2021-01-09] MEDS: THIAMINE HCL 100 MG TABLET (FP) PO SCH (21:51)
[2021-01-09] MEDS: ATORVASTATIN CA 10 MG TABLET (FP) PO SCH (21:52)
[2021-01-10] MEDS: GABAPENTIN 100 MG CAPSULE PO SCH ×3 (06:25→22:05)
[2021-01-10] MEDS: LEVOTHYROXINE NA 25 MCG TABLET (FP) PO SCH (06:25)
[2021-01-10] MEDS: PRENATAL VITAMINS W/ FOLIC ACID TABLET (FP) PO SCH (10:12)
[2021-01-10] MEDS: PARoxetine HCL 20 MG TABLET PO SCH (10:13)
[2021-01-10] MEDS: ARIPiprazole 10 MG TABLET PO SCH (10:13)
[2021-01-10] MEDS: BUPRENORPHINE/NALOXONE 8 MG/2 MG FILM PACKET SL SCH ×2 (10:14→22:06)
[2021-01-10] MEDS: THIAMINE HCL 100 MG TABLET (FP) PO SCH (22:05)
[2021-01-10] MEDS: ATORVASTATIN CA 10 MG TABLET (FP) PO SCH (22:05)
[2021-01-10] MEDS: MELATONIN 5 MG TABLETS PO SCH (22:05)
[2021-01-11] MEDS ORDERED: PT OWN MED DRAWER 7, Y5N ONE ×3 (04:20→10:49)
[2021-01-11] MEDS: LEVOTHYROXINE NA 25 MCG TABLET (FP) PO SCH (06:10)
[2021-01-11] MEDS: MAGNESIUM HYDROX 2400MG/30ML ORAL SUSPENSION 30 ML CUP PO PRN (06:10)
[2021-01-11] MEDS: GABAPENTIN 100 MG CAPSULE PO SCH ×3 (06:11→21:29)
[2021-01-11] MEDS: PRENATAL VITAMINS W/ FOLIC ACID TABLET (FP) PO SCH (10:40)
[2021-01-11] MEDS: BUPRENORPHINE/NALOXONE 8 MG/2 MG FILM PACKET SL SCH ×2 (10:40→21:29)
[2021-01-11] MEDS: PARoxetine HCL 20 MG TABLET PO SCH (10:41)
[2021-01-11] MEDS: ARIPiprazole 10 MG TABLET PO SCH (10:41)
[2021-01-11] MEDS: MELATONIN 5 MG TABLETS PO SCH (21:29)
[2021-01-11] MEDS: ATORVASTATIN CA 10 MG TABLET (FP) PO SCH (21:29)
[2021-01-11] MEDS: THIAMINE HCL 100 MG TABLET (FP) PO SCH (21:29)
[2021-01-12] MEDS: MAGNESIUM HYDROX 2400MG/30ML ORAL SUSPENSION 30 ML CUP PO PRN (06:13)
[2021-01-12] MEDS: GABAPENTIN 100 MG CAPSULE PO SCH ×3 (06:14→21:18)
[2021-01-12] MEDS: LEVOTHYROXINE NA 25 MCG TABLET (FP) PO SCH (06:14)
[2021-01-12] MEDS: ARIPiprazole 10 MG TABLET PO SCH (10:34)
[2021-01-12] MEDS: PRENATAL VITAMINS W/ FOLIC ACID TABLET (FP) PO SCH (10:34)
[2021-01-12] MEDS: BUPRENORPHINE/NALOXONE 8 MG/2 MG FILM PACKET SL SCH ×2 (10:34→21:18)
[2021-01-12] MEDS: PARoxetine HCL 20 MG TABLET PO SCH (11:34)
[2021-01-12] MEDS: THIAMINE HCL 100 MG TABLET (FP) PO SCH (21:18)
[2021-01-12] MEDS: ATORVASTATIN CA 10 MG TABLET (FP) PO SCH (21:18)
[2021-01-12] MEDS: MELATONIN 5 MG TABLETS PO SCH (21:18)
[2021-01-12] MEDS ORDERED: PT OWN MED DRAWER 7, Y5N ONE (22:38)
[2021-01-13] MEDS ORDERED: PT OWN MED DRAWER 7, Y5N ONE ×2 (04:00→08:59)
[2021-01-13] MEDS: GABAPENTIN 100 MG CAPSULE PO SCH ×3 (06:16→22:34)
[2021-01-13] MEDS: LEVOTHYROXINE NA 25 MCG TABLET (FP) PO SCH (06:16)
[2021-01-13] MEDS: MAGNESIUM CITRATE 300 ML BOTTLE PO PRN (06:16)
[2021-01-13] MEDS ORDERED: ARIPiprazole 5 MG TABLET ONE (08:57)
[2021-01-13] MEDS: PARoxetine HCL 20 MG TABLET PO SCH (10:38)
[2021-01-13] MEDS: PRENATAL VITAMINS W/ FOLIC ACID TABLET (FP) PO SCH (10:38)
[2021-01-13] MEDS: BUPRENORPHINE/NALOXONE 8 MG/2 MG FILM PACKET SL SCH ×2 (10:39→22:34)
[2021-01-13] MEDS: ARIPiprazole 10 MG TABLET PO SCH (10:39)
[2021-01-13] MEDS: ATORVASTATIN CA 10 MG TABLET (FP) PO SCH (22:34)
[2021-01-13] MEDS: THIAMINE HCL 100 MG TABLET (FP) PO SCH (22:34)
[2021-01-13] MEDS: MELATONIN 5 MG TABLETS PO SCH (22:34)
[2021-01-14] MEDS: GABAPENTIN 100 MG CAPSULE PO SCH ×3 (06:05→21:51)
[2021-01-14] MEDS: LEVOTHYROXINE NA 25 MCG TABLET (FP) PO SCH (06:05)
[2021-01-14] MEDS: PRENATAL VITAMINS W/ FOLIC ACID TABLET (FP) PO SCH (10:25)
[2021-01-14] MEDS: ARIPiprazole 10 MG TABLET PO SCH (10:26)
[2021-01-14] MEDS: BUPRENORPHINE/NALOXONE 8 MG/2 MG FILM PACKET SL SCH ×2 (10:28→22:18)
[2021-01-14] MEDS: PARoxetine HCL 20 MG TABLET PO SCH (10:29)
[2021-01-14] MEDS ORDERED: PT OWN MED DRAWER 7, Y5N ONE (10:48)
[2021-01-14] MEDS: ATORVASTATIN CA 10 MG TABLET (FP) PO SCH (21:51)
[2021-01-14] MEDS: MELATONIN 5 MG TABLETS PO SCH (21:51)
[2021-01-14] MEDS: THIAMINE HCL 100 MG TABLET (FP) PO SCH (21:51)
[2021-01-15] MEDS: GABAPENTIN 100 MG CAPSULE PO SCH ×3 (06:08→22:01)
[2021-01-15] MEDS: LEVOTHYROXINE NA 25 MCG TABLET (FP) PO SCH (06:08)
[2021-01-15] MEDS: BUPRENORPHINE/NALOXONE 8 MG/2 MG FILM PACKET SL SCH ×2 (10:22→17:33)
[2021-01-15] MEDS: PRENATAL VITAMINS W/ FOLIC ACID TABLET (FP) PO SCH (10:22)
[2021-01-15] MEDS: PARoxetine HCL 20 MG TABLET PO SCH (10:23)
[2021-01-15] MEDS: ARIPiprazole 10 MG TABLET PO SCH (10:23)
[2021-01-15] MEDS: THIAMINE HCL 100 MG TABLET (FP) PO SCH (22:01)
[2021-01-15] MEDS: MELATONIN 5 MG TABLETS PO SCH (22:01)
[2021-01-15] MEDS: ATORVASTATIN CA 10 MG TABLET (FP) PO SCH (22:01)
[2021-01-16] MEDS: LEVOTHYROXINE NA 25 MCG TABLET (FP) PO SCH (06:11)
[2021-01-16] MEDS ORDERED: PT OWN MED DRAWER 7, Y5N ONE (06:11)
[2021-01-16] MEDS: BUPRENORPHINE/NALOXONE 8 MG/2 MG FILM PACKET SL SCH ×2 (06:12→18:01)
[2021-01-16] MEDS: GABAPENTIN 100 MG CAPSULE PO SCH ×3 (06:57→21:49)
[2021-01-16] MEDS ORDERED: ARIPiprazole 5 MG TABLET ONE (09:26)
[2021-01-16] MEDS: PARoxetine HCL 20 MG TABLET PO SCH (10:49)
[2021-01-16] MEDS: ARIPiprazole 10 MG TABLET PO SCH (10:49)
[2021-01-16] MEDS: PRENATAL VITAMINS W/ FOLIC ACID TABLET (FP) PO SCH (10:49)
[2021-01-16] MEDS: ATORVASTATIN CA 10 MG TABLET (FP) PO SCH (21:49)
[2021-01-16] MEDS: THIAMINE HCL 100 MG TABLET (FP) PO SCH (21:49)
[2021-01-16] MEDS: MELATONIN 5 MG TABLETS PO SCH (21:49)
[2021-01-17] MEDS: BUPRENORPHINE/NALOXONE 8 MG/2 MG FILM PACKET SL SCH ×2 (06:20→17:36)
[2021-01-17] MEDS: GABAPENTIN 100 MG CAPSULE PO SCH ×3 (06:20→22:15)
[2021-01-17] MEDS ORDERED: PT OWN MED DRAWER 7, Y5N ONE (06:22)
[2021-01-17] MEDS: LEVOTHYROXINE NA 25 MCG TABLET (FP) PO SCH (06:22)
[2021-01-17] MEDS ORDERED: ARIPiprazole 5 MG TABLET ONE (09:17)
[2021-01-17] MEDS: PRENATAL VITAMINS W/ FOLIC ACID TABLET (FP) PO SCH (09:50)
[2021-01-17] MEDS: ARIPiprazole 10 MG TABLET PO SCH (09:50)
[2021-01-17] MEDS: PARoxetine HCL 20 MG TABLET PO SCH (11:02)
[2021-01-17] MEDS: MAGNESIUM HYDROX 2400MG/30ML ORAL SUSPENSION 30 ML CUP PO PRN (13:53)
[2021-01-17] MEDS: MELATONIN 5 MG TABLETS PO SCH (22:14)
[2021-01-17] MEDS: THIAMINE HCL 100 MG TABLET (FP) PO SCH (22:15)
[2021-01-17] MEDS: ATORVASTATIN CA 10 MG TABLET (FP) PO SCH (22:15)
[2021-01-18] MEDS: GABAPENTIN 100 MG CAPSULE PO SCH ×3 (06:23→21:15)
[2021-01-18] MEDS: BUPRENORPHINE/NALOXONE 8 MG/2 MG FILM PACKET SL SCH ×2 (06:23→18:36)
[2021-01-18] MEDS: LEVOTHYROXINE NA 25 MCG TABLET (FP) PO SCH (06:23)
[2021-01-18] MEDS: PRENATAL VITAMINS W/ FOLIC ACID TABLET (FP) PO SCH (10:59)
[2021-01-18] MEDS: ARIPiprazole 10 MG TABLET PO SCH (11:00)
[2021-01-18] MEDS: PARoxetine HCL 20 MG TABLET PO SCH (11:00)
[2021-01-18] MEDS: THIAMINE HCL 100 MG TABLET (FP) PO SCH (21:15)
[2021-01-18] MEDS: ATORVASTATIN CA 10 MG TABLET (FP) PO SCH (21:15)
[2021-01-18] MEDS: MELATONIN 5 MG TABLETS PO SCH (21:15)
[2021-01-18] MEDS: MAGNESIUM HYDROX 2400MG/30ML ORAL SUSPENSION 30 ML CUP PO PRN (21:15)
[2021-01-19] MEDS: LEVOTHYROXINE NA 25 MCG TABLET (FP) PO SCH (06:09)
[2021-01-19] MEDS: BUPRENORPHINE/NALOXONE 8 MG/2 MG FILM PACKET SL SCH ×2 (06:09→17:05)
[2021-01-19] MEDS: MAGNESIUM HYDROX 2400MG/30ML ORAL SUSPENSION 30 ML CUP PO PRN (06:09)
[2021-01-19] MEDS: GABAPENTIN 100 MG CAPSULE PO SCH ×3 (06:09→21:17)
[2021-01-19] MEDS: PRENATAL VITAMINS W/ FOLIC ACID TABLET (FP) PO SCH (09:52)
[2021-01-19] MEDS: PARoxetine HCL 20 MG TABLET PO SCH (09:53)
[2021-01-19] MEDS: ARIPiprazole 10 MG TABLET PO SCH (09:54)
[2021-01-19] MEDS: MAGNESIUM CITRATE 300 ML BOTTLE PO PRN (13:11)
[2021-01-19] MEDS: THIAMINE HCL 100 MG TABLET (FP) PO SCH (21:17)
[2021-01-19] MEDS: ATORVASTATIN CA 10 MG TABLET (FP) PO SCH (21:17)
[2021-01-19] MEDS: MELATONIN 5 MG TABLETS PO SCH (21:17)
[2021-01-20] MEDS ORDERED: PT OWN MED DRAWER 7, Y5N ONE (03:52)
[2021-01-20] MEDS: GABAPENTIN 100 MG CAPSULE PO SCH ×3 (06:13→21:12)
[2021-01-20] MEDS: LEVOTHYROXINE NA 25 MCG TABLET (FP) PO SCH (06:13)
[2021-01-20] MEDS: BUPRENORPHINE/NALOXONE 8 MG/2 MG FILM PACKET SL SCH ×2 (06:13→17:16)
[2021-01-20] MEDS ORDERED: ARIPiprazole 5 MG TABLET ONE (08:58)
[2021-01-20] MEDS: PRENATAL VITAMINS W/ FOLIC ACID TABLET (FP) PO SCH (10:19)
[2021-01-20] MEDS: PARoxetine HCL 20 MG TABLET PO SCH (10:20)
[2021-01-20] MEDS: ARIPiprazole 10 MG TABLET PO SCH (10:20)
[2021-01-20] MEDS: MELATONIN 5 MG TABLETS PO SCH (21:11)
[2021-01-20] MEDS: THIAMINE HCL 100 MG TABLET (FP) PO SCH (21:11)
[2021-01-20] MEDS: ATORVASTATIN CA 10 MG TABLET (FP) PO SCH (21:12)
[2021-01-21] MEDS ORDERED: PT OWN MED DRAWER 7, Y5N ONE (03:00)
[2021-01-21] MEDS: LEVOTHYROXINE NA 25 MCG TABLET (FP) PO SCH (06:06)
[2021-01-21] MEDS: BUPRENORPHINE/NALOXONE 8 MG/2 MG FILM PACKET SL SCH ×2 (06:06→18:16)
[2021-01-21] MEDS: GABAPENTIN 100 MG CAPSULE PO SCH ×3 (06:06→21:09)
[2021-01-21] MEDS: ARIPiprazole 10 MG TABLET PO SCH (10:30)
[2021-01-21] MEDS: PARoxetine HCL 20 MG TABLET PO SCH (10:30)
[2021-01-21] MEDS: PRENATAL VITAMINS W/ FOLIC ACID TABLET (FP) PO SCH (10:30)
[2021-01-21] MEDS: MAGNESIUM HYDROX 2400MG/30ML ORAL SUSPENSION 30 ML CUP PO PRN (10:31)
[2021-01-21] MEDS: THIAMINE HCL 100 MG TABLET (FP) PO SCH (21:09)
[2021-01-21] MEDS: MELATONIN 5 MG TABLETS PO SCH (21:09)
[2021-01-21] MEDS: ATORVASTATIN CA 10 MG TABLET (FP) PO SCH (21:09)
[2021-01-22] MEDS ORDERED: PT OWN MED DRAWER 7, Y5N ONE ×2 (05:11→08:47)
[2021-01-22] MEDS: BUPRENORPHINE/NALOXONE 8 MG/2 MG FILM PACKET SL SCH ×2 (06:13→17:35)
[2021-01-22] MEDS: GABAPENTIN 100 MG CAPSULE PO SCH ×3 (06:13→21:23)
[2021-01-22] MEDS: LEVOTHYROXINE NA 25 MCG TABLET (FP) PO SCH (06:13)
[2021-01-22] MEDS ORDERED: ARIPiprazole 5 MG TABLET ONE (08:46)
[2021-01-22] MEDS: MAGNESIUM HYDROX 2400MG/30ML ORAL SUSPENSION 30 ML CUP PO PRN (10:41)
[2021-01-22] MEDS: PARoxetine HCL 20 MG TABLET PO SCH (10:41)
[2021-01-22] MEDS: PRENATAL VITAMINS W/ FOLIC ACID TABLET (FP) PO SCH (10:41)
[2021-01-22] MEDS: ARIPiprazole 10 MG TABLET PO SCH (10:41)
[2021-01-22] MEDS: THIAMINE HCL 100 MG TABLET (FP) PO SCH (21:23)
[2021-01-22] MEDS: MELATONIN 5 MG TABLETS PO SCH (21:23)
[2021-01-22] MEDS: ATORVASTATIN CA 10 MG TABLET (FP) PO SCH (21:23)
[2021-01-23] MEDS: BUPRENORPHINE/NALOXONE 8 MG/2 MG FILM PACKET SL SCH ×2 (05:52→17:16)
[2021-01-23] MEDS: GABAPENTIN 100 MG CAPSULE PO SCH ×3 (05:52→21:50)
[2021-01-23] MEDS: LEVOTHYROXINE NA 25 MCG TABLET (FP) PO SCH (06:48)
[2021-01-23] MEDS ORDERED: PT OWN MED DRAWER 7, Y5N ONE (09:10)
[2021-01-23] MEDS: PRENATAL VITAMINS W/ FOLIC ACID TABLET (FP) PO SCH (10:30)
[2021-01-23] MEDS: ARIPiprazole 10 MG TABLET PO SCH (10:30)
[2021-01-23] MEDS: PARoxetine HCL 20 MG TABLET PO SCH (10:31)
[2021-01-23] MEDS: MAGNESIUM HYDROX 2400MG/30ML ORAL SUSPENSION 30 ML CUP PO PRN (10:34)
[2021-01-23] MEDS: THIAMINE HCL 100 MG TABLET (FP) PO SCH (21:50)
[2021-01-23] MEDS: MELATONIN 5 MG TABLETS PO SCH (21:50)
[2021-01-23] MEDS: ATORVASTATIN CA 10 MG TABLET (FP) PO SCH (21:52)
[2021-01-24] MEDS ORDERED: PT OWN MED DRAWER 7, Y5N ONE (03:37)
[2021-01-24] MEDS: LEVOTHYROXINE NA 25 MCG TABLET (FP) PO SCH (06:03)
[2021-01-24] MEDS: GABAPENTIN 100 MG CAPSULE PO SCH ×3 (06:03→21:35)
[2021-01-24] MEDS: BUPRENORPHINE/NALOXONE 8 MG/2 MG FILM PACKET SL SCH ×2 (06:03→17:48)
[2021-01-24] MEDS: PRENATAL VITAMINS W/ FOLIC ACID TABLET (FP) PO SCH (10:12)
[2021-01-24] MEDS: PARoxetine HCL 20 MG TABLET PO SCH (10:12)
[2021-01-24] MEDS: ARIPiprazole 10 MG TABLET PO SCH (10:12)
[2021-01-24] MEDS: MAGNESIUM HYDROX 2400MG/30ML ORAL SUSPENSION 30 ML CUP PO PRN (10:13)
[2021-01-24] MEDS: ATORVASTATIN CA 10 MG TABLET (FP) PO SCH (21:35)
[2021-01-24] MEDS: THIAMINE HCL 100 MG TABLET (FP) PO SCH (21:35)
[2021-01-24] MEDS: MELATONIN 5 MG TABLETS PO SCH (21:35)
[2021-01-25] MEDS ORDERED: PT OWN MED DRAWER 7, Y5N ONE (04:13)
[2021-01-25] MEDS: LEVOTHYROXINE NA 25 MCG TABLET (FP) PO SCH (06:16)
[2021-01-25] MEDS: GABAPENTIN 100 MG CAPSULE PO SCH ×3 (06:16→21:31)
[2021-01-25] MEDS: BUPRENORPHINE/NALOXONE 8 MG/2 MG FILM PACKET SL SCH ×2 (06:16→18:00)
[2021-01-25] MEDS: ARIPiprazole 10 MG TABLET PO SCH (09:57)
[2021-01-25] MEDS: PRENATAL VITAMINS W/ FOLIC ACID TABLET (FP) PO SCH (09:58)
[2021-01-25] MEDS: PARoxetine HCL 20 MG TABLET PO SCH (09:58)
[2021-01-25] MEDS: THIAMINE HCL 100 MG TABLET (FP) PO SCH (21:31)
[2021-01-25] MEDS: DOCUSATE SODIUM 100 MG CAPSULE (FP) PO SCH (21:31)
[2021-01-25] MEDS: MELATONIN 5 MG TABLETS PO SCH (21:31)
[2021-01-25] MEDS: ATORVASTATIN CA 10 MG TABLET (FP) PO SCH (21:31)
[2021-01-26] MEDS ORDERED: PT OWN MED DRAWER 7, Y5N ONE ×2 (03:11→08:50)
[2021-01-26] MEDS: LEVOTHYROXINE NA 25 MCG TABLET (FP) PO SCH (06:06)
[2021-01-26] MEDS: BUPRENORPHINE/NALOXONE 8 MG/2 MG FILM PACKET SL SCH ×2 (06:06→17:49)
[2021-01-26] MEDS: DOCUSATE SODIUM 100 MG CAPSULE (FP) PO SCH ×3 (06:06→21:47)
[2021-01-26] MEDS: GABAPENTIN 100 MG CAPSULE PO SCH ×3 (06:06→21:47)
[2021-01-26] MEDS ORDERED: ARIPiprazole 5 MG TABLET ONE (08:49)
[2021-01-26] MEDS: ARIPiprazole 10 MG TABLET PO SCH (10:27)
[2021-01-26] MEDS: PRENATAL VITAMINS W/ FOLIC ACID TABLET (FP) PO SCH (10:27)
[2021-01-26] MEDS: PARoxetine HCL 20 MG TABLET PO SCH (10:27)
[2021-01-26] MEDS: ATORVASTATIN CA 10 MG TABLET (FP) PO SCH (21:47)
[2021-01-26] MEDS: THIAMINE HCL 100 MG TABLET (FP) PO SCH (21:47)
[2021-01-26] MEDS: MELATONIN 5 MG TABLETS PO SCH (21:47)
[2021-01-27] MEDS: DOCUSATE SODIUM 100 MG CAPSULE (FP) PO SCH ×3 (06:07→22:06)
[2021-01-27] MEDS: GABAPENTIN 100 MG CAPSULE PO SCH ×3 (06:07→22:06)
[2021-01-27] MEDS: BUPRENORPHINE/NALOXONE 8 MG/2 MG FILM PACKET SL SCH ×2 (06:07→18:13)
[2021-01-27] MEDS: LEVOTHYROXINE NA 25 MCG TABLET (FP) PO SCH (06:07)
[2021-01-27] MEDS: PARoxetine HCL 20 MG TABLET PO SCH (09:53)
[2021-01-27] MEDS: PRENATAL VITAMINS W/ FOLIC ACID TABLET (FP) PO SCH (09:53)
[2021-01-27] MEDS: ARIPiprazole 10 MG TABLET PO SCH (09:53)
[2021-01-27] MEDS: MAGNESIUM HYDROX 2400MG/30ML ORAL SUSPENSION 30 ML CUP PO PRN (18:11)
[2021-01-27] MEDS: MELATONIN 5 MG TABLETS PO SCH (22:06)
[2021-01-27] MEDS: ATORVASTATIN CA 10 MG TABLET (FP) PO SCH (22:06)
[2021-01-27] MEDS: THIAMINE HCL 100 MG TABLET (FP) PO SCH (22:06)
[2021-01-28] MEDS ORDERED: PT OWN MED DRAWER 7, Y5N ONE (05:12)
[2021-01-28] MEDS: GABAPENTIN 100 MG CAPSULE PO SCH ×3 (06:02→21:36)
[2021-01-28] MEDS: DOCUSATE SODIUM 100 MG CAPSULE (FP) PO SCH ×3 (06:02→21:37)
[2021-01-28] MEDS: BUPRENORPHINE/NALOXONE 8 MG/2 MG FILM PACKET SL SCH ×2 (06:02→18:01)
[2021-01-28] MEDS: LEVOTHYROXINE NA 25 MCG TABLET (FP) PO SCH (06:02)
[2021-01-28 07:35] VITALS: PULSE 58; TEMP 97.1
[2021-01-28] MEDS: PARoxetine HCL 20 MG TABLET PO SCH (10:17)
[2021-01-28] MEDS: PRENATAL VITAMINS W/ FOLIC ACID TABLET (FP) PO SCH (10:18)
[2021-01-28] MEDS: ARIPiprazole 10 MG TABLET PO SCH (10:18)
[2021-01-28] MEDS: MAGNESIUM HYDROX 2400MG/30ML ORAL SUSPENSION 30 ML CUP PO PRN (10:19)
[2021-01-28] MEDS: ATORVASTATIN CA 10 MG TABLET (FP) PO SCH (21:36)
[2021-01-28] MEDS: THIAMINE HCL 100 MG TABLET (FP) PO SCH (21:37)
[2021-01-28] MEDS: MELATONIN 5 MG TABLETS PO SCH (21:37)
[2021-01-29] MEDS: DOCUSATE SODIUM 100 MG CAPSULE (FP) PO SCH (05:55)
[2021-01-29] MEDS: GABAPENTIN 100 MG CAPSULE PO SCH (05:55)
[2021-01-29] MEDS: BUPRENORPHINE/NALOXONE 8 MG/2 MG FILM PACKET SL SCH (05:55)
[2021-01-29] MEDS: LEVOTHYROXINE NA 25 MCG TABLET (FP) PO SCH (06:37)
[2021-01-29 06:52] VITALS: BP 98/63
[2021-01-29] MEDS: PARoxetine HCL 20 MG TABLET PO SCH (09:16)
[2021-01-29] MEDS: ARIPiprazole 10 MG TABLET PO SCH (09:16)
[2021-01-29] MEDS: PRENATAL VITAMINS W/ FOLIC ACID TABLET (FP) PO SCH (09:17)
== END 2021-01-29 09:30 | disposition home or self-care (01) | DRG 772 ==
LOC: YASAS 17:56 → Y5N 17:57
PROVIDERS: ADMIT Allergy & Immunology; ATTEND Allergy & Immunology
PROC: HZ42ZZZ Group Counseling for Substance Abuse Treatment, Cognitive-Behavioral (ICD-10-PCS; principal; 2021-01-01)
DX: F10.20 Alcohol dependence, uncomplicated (principal); F11.20 Opioid dependence, uncomplicated; F10.282 Alcohol dependence with alcohol-induced sleep disorder; F10.24 Alcohol dependence with alcohol-induced mood disorder; F33.1 Major depressive disorder, recurrent, moderate; G47.00 Insomnia, unspecified; E03.9 Hypothyroidism, unspecified; E78.5 Hyperlipidemia, unspecified; Z62.810 Personal history of physical and sexual abuse in childhood; Z91.410 Personal history of adult physical and sexual abuse; Z51.81 Encounter for therapeutic drug level monitoring; Z59.0 Homelessness; Z56.0 Unemployment, unspecified